=== PATIENT | male | born 1950 ===

== ENCOUNTER → 2020-01-01 13:49 | Outpatient (BNVA) | payer MEDICARE, SELFPAY | PROVIDERS: PCP Internal Medicine; Visit Provider Urology | DX: Z76.89 Persons encountering health services in other specified circumstances (principal) ==

== ENCOUNTER 2020-01-01 14:36 | Inpatient (IN) | payer MEDICARE, SELFPAY ==
--- NOTE | 2020-01-01 | CT_ITS ---
EXAMINATION: CT ABDOMEN AND PELVIS WITH CONTRAST CLINICAL INFORMATION: Left buttock abscess with concern for spread into the peritoneum. COMPARISON: None TECHNIQUE: Multidetector volumetric images were obtained from the superior aspect of the liver through the pubic symphysis following administration 85 mL of Omnipaque 350 intravenous contrast. Sagittal and coronal reformatted images were obtained on the technologist's workstation. Oral Contrast: No. This CT examination was performed using dose optimization techniques as appropriate, variously including the following: *Automated exposure control. *Adjustment of mA and/or kV according to patient size (this includes techniques or standardized protocols for targeted exams where dose is matched to indication/reason for exam; i.e. extremities or head). *Use of iterative reconstruction technique. DLP: 925 mGy-cm FINDINGS: LUNG BASES: The visualized lung bases are unremarkable. LIVER, GALLBLADDER, AND BILIARY TREE: The liver is normal in size, shape, and attenuation. A tiny millimeter-sized density is noted in the mid right lobe (series 3 image 15). No worrisome focal hepatic lesion or biliary ductal dilatation is present. The gallbladder is unremarkable with no evidence of radiopaque gallstones, gallbladder wall thickening, or obvious pericholecystic inflammatory changes. PANCREAS: Unremarkable. SPLEEN: Unremarkable. ADRENAL GLANDS: Unremarkable. KIDNEYS AND URETERS: Bilateral hydronephrosis is present with dilatation of the ureters down to the level of the ureterovesical junctions. No obstructing calculi are seen. Intrarenal calculi are present on the left with a posterior midpole stone measuring 1.1 cm and a lower pole stone measuring 0.8 cm. The lower pole stone measures 1089 Hounsfield units and is 6.8 cm from the posterior axillary line. In addition to the hydronephrosis, bilateral renal cysts are present ranging in size from under a centimeter to the largest at the left upper pole measuring 5.2 cm. No definite solid renal masses are seen. BLADDER: The bladder is symmetrically thickened and trabeculated. No bladder calculi are seen. GASTROINTESTINAL TRACT: Extensive sigmoid diverticular changes are present without evidence of diverticulitis. The small and large bowel are otherwise unremarkable. The appendix is not seen with certainty. ABDOMINAL WALL: There is a left-sided perirectal small collection present measuring 3.2 x 1.0 x 2.5 cm. This is associated with skin thickening. There is no extension of this into the peritoneal cavity. The anterior aspect of this is at the base of the shafts of the penis, just in front of the anus. No other abscesses are seen. There is a small right inguinal hernia containing only fat. No other hernias are seen. LYMPH NODES: No retroperitoneal lymphadenopathy is seen. VASCULAR: Mild calcific atherosclerotic changes are present. PELVIC VISCERA: Prostate and seminal vesicles appear normal. OSSEOUS STRUCTURES: Unremarkable. Mild degenerative changes are present. IMPRESSION: 1. There is a tiny left-sided perianal/rectal abscess. No fistulous collection or extension into the peritoneal cavity is seen. 2. Tiny millimeter-sized hepatic mass which should be of no concern. 3. Bilateral ureterohydronephrosis down to the level of the ureterovesical junctions. The etiology is not clear. Strictures could be present. Reflux could be present. Work up with urology should be performed if this has not already occurred. 4. Left-sided non-obstructing renal calculi. 5. Colonic diverticulosis without diverticulitis.
[2020-01-01 15:21] VITALS: BP 144/53; PULSE 89; RESP 18; TEMP 37.4; O2SAT 97; BMI 28.0
[2020-01-01 17:57] VITALS: BP 149/65; PULSE 70; RESP 16; TEMP 37.3; O2SAT 100
[2020-01-01] MEDS: 0.9 % Sodium Chloride 1,000 ML 999 ML IVCONT (18:08)
[2020-01-01 18:10] LABS: MANUAL DIFF FLAG NO
[2020-01-01 18:14] LABS: Basophils Absolute Auto 0.1 X10*3/uL (0.0-0.2); Basophils Percent Auto 0.5 % (0-2); Eosinophils Absolute Auto 0.1 X10*3/uL (0.0-0.4); Imm Gran Abs Auto 0.07 X10*3/uL (0.00-0.03); Imm Gran Pct Auto 0.5 % (0.0-0.4); Lymphocytes Absolute Auto 1.7 X10*3/uL (1.2-4.9); Lymphocytes Percent Auto 12.4 % (20-40); Mean Corpuscular HGB Conc 33.3 g/dl (31.0-36.0); Mean Corpuscular Hemoglobin 30.4 pg (27.0-33.0); Mean Corpuscular Volume 91.1 fL (80-98); Monocytes Absolute Auto 1.3 X10*3/uL (0.1-1.2); Monocytes Percent Auto 9.8 % (2-11); Neutrophils Absolute Auto 10.1 X10*3/uL (2.0-8.3); Neutrophils Percent Auto 75.8 % (45-73); Platelet Count 341 X10*3/uL (160-400); Red Blood Count 4.28 X10*6/uL (4.60-5.80); Red Cell Distribution Width 11.9 % (11.0-16.0); White Blood Count 13.3 X10*3/uL (4.8-10.8)
[2020-01-01 18:18] LABS: INTERNATIONAL NORM RATIO 1.3 (0.9-1.1); Prothrombin Time 15.3 SEC (10.8-13.0)
[2020-01-01 18:21] LABS: Partial Thromboplastin Time 29.9 SEC (24.1-38.0)
--- NOTE | 2020-01-01 18:30 | ED_ITS ---
HPI - Skin/Abscess/Foreign Bdy General Chief complaint: Skin/Abscess/Foreign Body Stated complaint: cyst Time Seen by Provider: 01/01/20 21:06 History of Present Illness HPI narrative: patient was referred to the ED by Dr. montgomery his urologist for possible prostatitis. Patient states left cheek pain and swelling that has been worse for the past 3 days. Patient states also pain on urination. Patient states no abdominal pain, fever, chills, diarrhea, nausea, or vomiting. MD complaint: abscess/boil Related Data Home Medications Medication Instructions Recorded Confirmed metformin 500 mg tablet 1,000 mg PO DAILY 01/01/20 01/01/20 rosuvastatin 10 mg tablet 10 mg PO DAILY 01/01/20 01/01/20 Previous Rx's Medication Instructions Recorded sulfamethoxazole 800 1 tab PO BID 14 Days #28 tab 12/31/19 mg-trimethoprim 160 mg tablet Allergies Allergy/AdvReac Type Severity Reaction Status Date / Time No Known Allergies Allergy Verified 01/01/20 14:07 [No Known Allergies*] Review of Systems Review of Systems: Yes all other systems are reviewed and are negative Constitutional: Constitutional: Reports as per HPI and Reports no additional constitutional complaints Cardiovascular: Cardiovascular: Reports no additional cardiovascular complaints Respiratory: Respiratory: Reports no additional respiratory complaints, Reports no additional respiratory complaints, Denies change in phlegm color, D enies chest congestion, Denies cough, Denies excessive phlegm production and Denies pain on inspiration Gastrointestinal: Gastrointestinal: Reports no additional gastrointestinal complaints, Denies abdominal pain, Denies melena, Denies bloating, Denies hematochezia, Denies change in bowel habits, Denies tenesmus, Denies change in stool character and Denies coffee ground emesis Genitourinary: Genitourinary: Denies scrotal swelling and Denies testicular pain Comments: positive for left buttock large mass that is swollen and tender, with erythema. Also perineal area is tender and slightly swollen. Digital rectal exam does not indicate tender prostate. [facility] Past Medical History Medical History (Updated 01/02/20 @ 00:52 by BRYNN Medrano) Amputated finger Diabetes High cholesterol Surgical History (Updated 01/01/20 @ 15:24 by Benita Dickerson) History of appendectomy S/P TURP (transurethral resection of prostate) Social History Social History Smoked in Last 30 Days: No Use of substances other than those prescribed or required for medical reasons: No Advance Directives: No Advance Directives Information Provided: No Physical Exam Vital Signs and I&O and Narrative: Vital Signs and I&O: Vital Signs Temp 98.3 F 01/02/20 00:42 Pulse 62 01/02/20 00:42 Resp 20 01/02/20 00:42 BP 153/70 H 01/02/20 00:42 Pulse Ox 97 01/02/20 00:42 Intake & Output 01/01/20 01/01/20 01/02/20 06:59 18:59 06:59 Intake Total 1000 / 1050 Balance 1000 / 1050 Weight 98.883 kg Intake: Intake, IV Amoun t 1000 / 1050 0.9 % Sodium C hloride 1,000 ml 1000 / 1000 @ 999 mls/hr I VCONT .Q1H1M ONE Rx#:[id number] Body Mass Index 28.0 Const: General: cooperative, healthy appearing, comfortable and no acute distress Orientation/consciousness: patient oriented x3 HENMT: Head: Yes normal to inspection Neck: Neck: Yes normal visual inspection and Yes full ROM Chest: Chest palpation & inspection: normal inspection of the chest, normal palpation of entire chest wall and normal inspection of the chest Resp: Effort & Inspection: normal respiratory effort, able to speak in complete sentences and normal respiratory pattern Auscultation: clear to auscultation bilaterally Cardio: Jugular venous distension: no JVD Rate: regular rate Rhythm: regular rhythm Heart sounds: S1 normal heart sound present and S2 normal heart sound present GI: Inspection: Yes normal to inspection, No abdominal wall ecchymosis, No Abdominal wall edema, No distended and No incision Palpation (GI): nontender : Other: for large swelling mass on left gluteus arnaldo. Mass is erythematous and tender. Mass also hard. Perineal area between anus and scrotum is tender on palpation. MEREDITH exam does not indicate much prostate tenderness. General: No CVA tenderness and Yes no CVA tenderness Back/Spine/Pelvis: Back: no CVA tenderness, No CVA tenderness, No mass, No erythema, No warmth, No sacral edema and No back tenderness Skin: General skin exam: no rashes or lesions noted Neuro: General: patient oriented x3, gait normal and CN's II-XI intact bilaterally Cranial nerves: Yes CN's II-XII intact bilaterally Extrem: General: Yes normal to inspection and Yes full ROM Psych: Appearance: grossly normal and well kempt Course Course Course Narrative: Patient has left buttock abscess. Will send patient for CT scan to see if the abscesses tracking, possible perirectal abscess, and check for prostatitis. Reevaluation(s) Reevaluation #1: CT scan shows left perirectal/ perianal abscess. Patient evaluated Dr. Mckeon states patient should be admitted to surgery and states I&D should be done by surgery if indicated. Spoke with Dr. Zapien who agrees to admit patient to her service. Patient given IV antibiotics Zosyn. Time: 00:36 MDM - Skin/Abscess/Foreign Bdy MDM Narrative Medical decision making narrative: patient admitted to the hospital for perirectal/perianal abscess. Patient given IV antibiotics. Lab Data Result diagrams: 01/01/20 18:05 01/01/20 18:05 Labs: Lab Results 01/01/20 01/01/20 01/01/20 Range/Units 18:05 18:05 18:05 WBC 13.3 H (4.8-10.8) X10*3/uL RBC 4.28 L (4.60-5.80) X10*6/uL Hgb 13.0 L (14.0-18.0) g/dl Hct 39.0 L (42-52) % MCV 91.1 (80-98) fL MCH 30.4 (27.0-33.0) pg MCHC 33.3 (31.0-36.0) g/dl RDW 11.9 (11.0-16.0) % Plt Count 341 (160-400) X10*3/uL MPV 9.0 L (9.4-12.4) fL Immature Gran % (Auto) 0.5 H (0.0-0.4) % Neut % (Auto) 75.8 H (45-73) % Lymph % (Auto) 12.4 L (20-40) % [place] % (Auto) 9.8 (2-11) % Eos % (Auto) 1.0 (0-4) % Baso % (Auto) 0.5 (0-2) % Neut # (Auto) 10.1 H (2.0-8.3) X10*3/uL Lymph # (Auto) 1.7 (1.2-4.9) X10*3/uL [place] # (Auto) 1.3 H (0.1-1.2) X10*3/uL Eos # (Auto) 0.1 (0.0-0.4) X10*3/uL Baso # (Auto) 0.1 (0.0-0.2) X10*3/uL Abs Immat Gran (auto) 0.07 H (0.00-0.03) X10*3/uL Absolute Nucleated RBC 0.000 (0.0-0.012) X10*3/uL Nucleated RBC % (auto) 0.0 (0.0-0.2) /100WBC PT 15.3 H (10.8-13.0) SEC INR 1.3 H (0.9-1.1) APTT 29.9 (24.1-38.0) SEC Sodium 141 (135-145) mmol/L Potassium 3.7 (3.3-5.1) mmol/l Chloride 104 (96-108) mmol/L Carbon Dioxide 30 H (22-29) mmol/L Anion Gap 11 L (12-20) BUN 12 (9-16) mg/dL Creatinine 1.15 (0.5-1.4) mg/dL Estim Creat Clear Calc 74.0 Estimated GFR > 60 Random Glucose 119 H (60-115) mg/dL Lactic Acid (0.5-2.0) mmol/L Calcium 9.2 (8.4-10.2) mg/dL Total Bilirubin 0.4 (0.0-1.0) mg/dL AST 12 (5-37) U/L ALT 19 (0-40) U/L Alkaline Phosphatase 92 (39-117) U/L Total Protein 7.1 (6.5-8.0) g/dL Albumin 3.9 (3.5-5.0) g/dL 01/01/20 Range/Units 21:50 WBC (4.8-10.8) X10*3/uL RBC (4.60-5.80) X10*6/uL Hgb (14.0-18.0) g/dl Hct (42-52) % MCV (80-98) fL MCH (27.0-33.0) pg MCHC (31.0-36.0) g/dl RDW (11.0-16.0) % Plt Count (160-400) X10*3/uL MPV (9.4-12.4) fL Immature Gran % (Auto) (0.0-0.4) % Neut % (Auto) (45-73) % Lymph % (Auto) (20-40) % [place] % (Auto) (2-11) % Eos % (Auto) (0-4) % Baso % (Auto) (0-2) % Neut # (Auto) (2.0-8.3) X10*3/uL Lymph # (Auto) (1.2-4.9) X10*3/uL [place] # (Auto) (0.1-1.2) X10*3/uL Eos # (Auto) (0.0-0.4) X10*3/uL Baso # (Auto) (0.0-0.2) X10*3/uL Abs Immat Gran (auto) (0.00-0.03) X10*3/uL Absolute Nucleated RBC (0.0-0.012) X10*3/uL Nucleated RBC % (auto) (0.0-0.2) /100WBC PT (10.8-13.0) SEC INR (0.9-1.1) APTT (24.1-38.0) SEC Sodium (135-145) mmol/L Potassium (3.3-5.1) mmol/l Chloride (96-108) mmol/L Carbon Dioxide (22-29) mmol/L Anion Gap (12-20) BUN (9-16) mg/dL Creatinine (0.5-1.4) mg/dL Estim Creat Clear Calc Estimated GFR Random Glucose (60-115) mg/dL Lactic Acid 0.8 (0.5-2.0) mmol/L Calcium (8.4-10.2) mg/dL Total Bilirubin (0.0-1.0) mg/dL AST (5-37) U/L ALT (0-40) U/L Alkaline Phosphatase (39-117) U/L Total Protein (6.5-8.0) g/dL Albumin (3.5-5.0) g/dL Discharge Plan Discharge Clinical Impression: Abscess, perirectal Patient Disposition: Admitted As Inpatient Interventions: Admission Worksheet (ED) Last Done: 01/01/20 23:32 Discharge Date/Time: 01/02/20 00:56
[2020-01-01 18:37] LABS: Alanine Aminotransferase 19 U/L (0-40); Albumin Level 3.9 g/dL (3.5-5.0); Alkaline Phosphatase 92 U/L (39-117); Anion Gap 11 (12-20); Aspartate Amino Transferase 12 U/L (5-37); Bilirubin Total 0.4 mg/dL (0.0-1.0); Blood Urea Nitrogen 12 mg/dL (9-16); Calcium 9.2 mg/dL (8.4-10.2); Carbon Dioxide 30 mmol/L (22-29); Chloride 104 mmol/L (96-108); Estimated Glomerular Filt Rate > 60; Glucose Random 119 mg/dL (60-115); Potassium 3.7 mmol/l (3.3-5.1); Sodium 141 mmol/L (135-145); Total Protein 7.1 g/dL (6.5-8.0)
--- NOTE | 2020-01-01 19:17 | PC.NURSE ---
PATIENT AT CAT SCAN.
[2020-01-01] MEDS: iohexoL 350 MG/ML 100 ML INFUS..BTL IV (19:36)
[2020-01-01] MEDS: Ketorolac Tromethamine 30 MG/ML VIAL IVPUSH (20:24)
--- NOTE | 2020-01-01 20:26 | PC.NURSE ---
PATIENT MEDICATED PER EMAR FOR PAIN
--- NOTE | 2020-01-01 21:22 | PC.NURSE ---
PLAN IS FOR TO ADMIT THE PATIENT TO THE HOSPITAL
[2020-01-01 22:14] LABS: Lactic Acid 0.8 mmol/L (0.5-2.0)
[2020-01-01] MEDS: Piperacillin Sodium/Tazobactam 3.375 GM in 0.9 % Sodium Chloride 50 ML IV (22:33)
[2020-01-01 22:36] VITALS: BP 149/68; PULSE 67; RESP 15; O2SAT 98
--- NOTE | 2020-01-01 23:33 | PC.NURSE ---
CALLED FLOOR AND PER POTATO SPOTTER RN WAS JUST GETTING REPORT FROM RN ON THE FLOOR AND SHE WILL CALL LUDA
[2020-01-02] VITALS (13 sets, daily range): BP systolic 125–163; BP diastolic 54–82; PULSE 56–76; RESP 14–20; TEMP 36.1–37; O2SAT 64–100
--- NOTE | 2020-01-02 00:08 | PC.NURSE ---
REPORT GIVEN AND PATIENT READY FOR TRANSPORT TO THE FLOOR
[2020-01-02] MEDS: Lactated Ringers 1,000 ML 100 ML IVCONT ×2 (01:26→12:11)
[2020-01-02] MEDS: Piperacillin Sodium/Tazobactam 3.375 GM in 0.9 % Sodium Chloride 50 ML IV ×4 (04:27→21:22)
[2020-01-02 07:34] LABS: Anion Gap 11 (12-20); Blood Urea Nitrogen 12 mg/dL (9-16); Calcium 8.7 mg/dL (8.4-10.2); Carbon Dioxide 28 mmol/L (22-29); Chloride 105 mmol/L (96-108); Creatinine Clr Calc Pharmacy 87.8; Estimated Glomerular Filt Rate > 60; Glucose Fasting 133 mg/dL (60-99); Potassium 3.8 mmol/l (3.3-5.1); Sodium 140 mmol/L (135-145)
[2020-01-02 08:16] LABS: Basophils Absolute Auto 0.1 X10*3/uL (0.0-0.2); Basophils Percent Auto 0.6 % (0-2); Eosinophils Absolute Auto 0.2 X10*3/uL (0.0-0.4); Eosinophils Percent Auto 1.7 % (0-4); Hematocrit 36.9 % (42-52); Hemoglobin 12.2 g/dl (14.0-18.0); Imm Gran Abs Auto 0.04 X10*3/uL (0.00-0.03); Imm Gran Pct Auto 0.4 % (0.0-0.4); Lymphocytes Absolute Auto 1.9 X10*3/uL (1.2-4.9); Lymphocytes Percent Auto 19.5 % (20-40); MANUAL DIFF FLAG SCAN; Mean Corpuscular HGB Conc 33.1 g/dl (31.0-36.0); Mean Corpuscular Hemoglobin 30.3 pg (27.0-33.0); Mean Corpuscular Volume 91.6 fL (80-98); Mean Platelet Volume 9.4 fL (9.4-12.4); Monocytes Percent Auto 10.2 % (2-11); Neutrophils Absolute Auto 6.7 X10*3/uL (2.0-8.3); Neutrophils Percent Auto 67.6 % (45-73); PLT CLUMP 1; Red Blood Count 4.03 X10*6/uL (4.60-5.80); Red Cell Distribution Width 11.9 % (11.0-16.0); SCAN SMEAR FLAG 1
[2020-01-02 08:22] LABS: Glucose, Whole Blood 136 mg/dL (60-115)
[2020-01-02 08:39] LABS: Platelet Count 307 X10*3/uL (160-400)
[2020-01-02 08:40] LABS: SLIDE REVIEW VERIFIED
--- NOTE | 2020-01-02 08:45 | MHC.CM.PN ---
Patient lives in a house with his and 15 year old Granddaughter and he is functionally independent, driving, and working multimedia producer. Patient's goal for dc is to return home and CM has initiated and will follow for dc planning. IMM addressed with Patient and the original has been given to him and a copy has been placed on the chart.
--- NOTE | 2020-01-02 09:28 | P.HPGS_ITS ---
History of Present Illness History of Present Illness Chief complaint: cyst Narrative: Armaan Daniel is a 69 year old male Who gives a 2 week history of increasing pain and swelling just anterior to his rectum. He has been experiencing pain when he tries to sit and also worsening dysuria. He does not report any hematuria. He has felt mildly feverish at night but has not taken his temperature. He saw his urologist, Dr. Choudhary, yesterday and was advised to go to the emergency room for further evaluation and CT scanning. A CT scan of the abdomen and pelvis was obtained in the emergency room and demonstrated findings consistent with a perirectal abscess located day anteriorly extending toward the base of the penis Review of Systems Constitutional: Constitutional: Reports no additional constitutional complaints Eyes: Eyes: Reports requires corrective lenses Cardiovascular: Cardiovascular: Denies chest pain, Denies irregular heart rhythm, Denies palpitations and Denies dyspnea on exertion Respiratory: Respiratory: Denies cough, Denies dyspnea on exertion and Denies wheezing Gastrointestinal: Gastrointestinal: Denies abdominal pain, Denies hematochezia, Denies change in bowel habits and Denies nausea Genitourinary: Genitourinary: Reports dysuria, Denies nocturia and Denies urinary frequency Musculoskeletal: Musculoskeletal: Reports no additional musculoskeletal complaints Integumentary/Breasts: Skin/Breast: Denies pruritus and Denies rash Endocrine: Endocrine: Denies palpitations Hematologic/Lymphatic: Hematologic/Lymphatic: Denies easy bleeding and Reports other (history of blood clots) Allergic/Immunologic: Allergic/Immunologic: Denies wheezing PMFSH Past Medical History Medical History (Updated 01/02/20 @ 00:52 by BRYNN Medrano) Amputated finger Diabetes High cholesterol Functional capacity: independent ambulation Family History Family history: reviewed and not pertinent Surgical History Surgical History History of appendectomy S/P TURP (transurethral resection of prostate) Social History Social History Household Members: Spouse Housing: House Do you presently have visiting nurse or other home services: No Smoking Status: Never smoker Smoked in Last 30 Days: No Use of substances other than those prescribed or required for medical reasons: No Currently Displaying Signs/Symptoms of Drug Intoxication Withdrawal: No Have you been hit, kicked, punched, or otherwise hurt by someone within the past year? If so, by whom?: No Do you feel safe in your current relationship?: Yes Is there a partner from a previous relationship who is making you feel unsafe now?: No Are you made to feel afraid or neglected: No [employer]ond[employer] Healthcare Practices: [facility] Advance Directives: No Advance Directives Information Provided: No Do you have thoughts of harming others: None Do you have a plan to hurt others: No Plan Recently lost weight without trying: No service: Yes Current occupational status: employed Meds Allergies Allergy/AdvReac Type Severity Reaction Status Date / Time No Known Allergies Allergy Verified 01/01/20 14:07 [No Known Allergies*] Home Medications Medication Instructions Recorded Confirmed Type metformin 500 mg tablet 1,000 mg PO DAILY 01/01/20 01/01/20 History rosuvastatin 10 mg tablet 10 mg PO DAILY 01/01/20 01/01/20 History Physical Exam Vital Signs and I&O and Narrative: Vital Signs and I&O: Vital Signs Temp 97.4 F 01/02/20 08:00 Pulse 56 01/02/20 08:00 Resp 20 01/02/20 08:00 BP 159/77 H 01/02/20 08:00 Pulse Ox 96 01/02/20 08:00 Intake & Output 01/01/20 01/02/20 01/02/20 18:59 06:59 18:59 Intake Total 1384.333 / 1384.33 3 Output Total 200 / 200 Balance 1184.333 / 1184.33 3 Urine Output (Aver age ml/kg/hr) 0.17 Weight 218 lb Intake: Intake, Oral Nataly unt 0 / 0 Intake, IV Amoun t 1384.333 / 1384.33 3 Piperacillin S odium/Tazobactam 76 / 76 3.375 gm In 0. 9 % Sodium Chloride 50 ml @ 100 mls/hr IV Q6H CECILIA Rx#:[id number] 0.9 % Sodium C hloride 1,000 ml 1000 / 1000 @ 999 mls/hr I VCONT .Q1H1M ONE Rx#:[id number] Lactated Ringe rs 1,000 ml @ 100 308.333 / 308.333 mls/hr IVCONT .Q10H CECILIA Rx#: [id number] Output: Output, Urine Am ount 200 / 200 Body Mass Index 28.0 Const: General: comfortable, no acute distress and alert Neck: Neck: Yes normal visual inspection, Yes trachea midline and Yes supple Lymphatic: no lymphadenopathy noted Chest: Chest palpation & inspection: normal inspection of the chest Resp: Effort & Inspection: normal respiratory effort Auscultation: clear to auscultation bilaterally Cardio: Rate: regular rate Rhythm: regular rhythm GI: Other: there is erythema and induration anterior to the anal verge extending toward the base of the scrotum and penis with mild tenderness and no obvious fluctuance Inspection: Yes normal to inspection Palpation (GI): Soft to palpation and nontender Skin: Other: normal color, warm and dry Extrem: General: Yes normal to inspection Psych: Attitude: cooperative Insight: Good insight present (Psych) [place] gement: Good judgement present (Psych) Results Results Labs: Short CBC 01/01/20 01/02/20 Range/Units 18:05 05:51 WBC 13.3 H 10.0 (4.8-10.8) X10*3/uL Hgb 13.0 L 12.2 L (14.0-18.0) g/dl Hct 39.0 L 36.9 L (42-52) % Plt Count 341 307 (160-400) X10*3/uL BMP 01/01/20 01/02/20 18:05 05:51 Sodium 141 140 Potassium 3.7 3.8 Chloride 104 105 Carbon Dioxide 30 H 28 BUN 12 12 Creatinine 1.15 0.97 Calcium 9.2 8.7 Liver Function 01/01/20 Range/Units 18:05 Total Bilirubin 0.4 (0.0-1.0) mg/dL AST 12 (5-37) U/L ALT 19 (0-40) U/L Alkaline Phosphatase 92 (39-117) U/L Albumin 3.9 (3.5-5.0) g/dL Assessment and Plan (1) Abscess, perirectal: Status: Acute this is a 69-year-old male with examination and CT findings consistent with a perianal abscess located anteriorly. Incision and drainage is appropriate. Because it does not appear to be superficial, have recommended incision and drainage with general anesthesia. I reviewed the technique of the procedure with him and risks of infection and bleeding. Also, because of his dysuria, there is some concern regarding urethral involvement and the possibility of urethral injury and leakage is present though this risk appears to be relatively low. We discussed this. He agrees to proceed with surgery as recommended and this has been scheduled for later today.
[2020-01-02 11:13] LABS: Glucose, Whole Blood 116 mg/dL (60-115)
--- NOTE | 2020-01-02 13:33 | HO.ANESPROP2 ---
[facility] Past Medical History Medical History (Updated 01/02/20 @ 00:52 by BRYNN Medrano) Amputated finger Diabetes High cholesterol Functional capacity: independent ambulation Surgical History Surgical History History of appendectomy S/P TURP (transurethral resection of prostate) Social History Social History Household Members: Spouse Housing: House Do you presently have visiting nurse or other home services: No Smoking Status: Never smoker Smoked in Last 30 Days: No Use of substances other than those prescribed or required for medical reasons: No Currently Displaying Signs/Symptoms of Drug Intoxication Withdrawal: No Have you been hit, kicked, punched, or otherwise hurt by someone within the past year? If so, by whom?: No Do you feel safe in your current relationship?: Yes Is there a partner from a previous relationship who is making you feel unsafe now?: No Are you made to feel afraid or neglected: No [employer] Healthcare Practices: [employer]ist Advance Directives: No Advance Directives Information Provided: No Do you have thoughts of harming others: None Do you have a plan to hurt others: No Plan Recently lost weight without trying: No service: Yes Current occupational status: employed Meds Allergies Allergy/AdvReac Type Severity Reaction Status Date / Time No Known Allergies Allergy Verified 01/01/20 14:07 [No Known Allergies*] Home Medications Medication Instructions Recorded Confirmed Type metformin 500 mg tablet 1,000 mg PO DAILY 01/01/20 01/01/20 History rosuvastatin 10 mg tablet 10 mg PO DAILY 01/01/20 01/01/20 History Exam Exam Date and Time: January 02, 2020 1333 Height,Weight and Vital Signs: Height 6 ft 2 in Weight 98.883 kg Last Vital Signs Temp 98.3 F 01/02/20 12:48 Pulse 65 01/02/20 12:48 Resp 16 01/02/20 12:48 BP 163/67 H 01/02/20 12:48 Pulse Ox 99 01/02/20 12:48 Pertinent Lab Results Pertinent Lab Results: Laboratory Tests 01/01/20 01/01/20 01/01/20 18:05 18:05 18:05 WBC 13.3 H RBC 4.28 L Hgb 13.0 L Hct 39.0 L MCV 91.1 MCH 30.4 MCHC 33.3 RDW 11.9 Plt Count 341 MPV 9.0 L Immature Gran % (Auto) 0.5 H Neut % (Auto) 75.8 H Lymph % (Auto) 12.[address] [place] % (Auto) 9.8 Eos % (Auto) 1.0 Baso % (Auto) 0.5 Neut # (Auto) 10.1 H Lymph # (Auto) 1.7 [place] # (Auto) 1.3 H Eos # (Auto) 0.1 Baso # (Auto) 0.1 Abs Immat Gran (auto) 0.07 H Absolute Nucleated RBC 0.000 Nucleated RBC % (auto) 0.0 Smear Tech's Comments PT 15.3 H INR 1.3 H APTT 29.9 Sodium 141 Potassium 3.7 Chloride 104 Carbon Dioxide 30 H Anion Gap 11 L BUN 12 Creatinine 1.15 Estim Creat Clear Calc 74.0 Estimated GFR > 60 POC Glucose Random Glucose 119 H Fasting Glucose Lactic Acid Calcium 9.2 Total Bilirubin 0.4 AST 12 ALT 19 Alkaline Phosphatase 92 Total Protein 7.1 Albumin 3.9 01/01/20 01/02/20 01/02/20 21:50 05:51 05:51 WBC 10.0 RBC 4.03 L Hgb 12.2 L Hct 36.9 L MCV 91.6 MCH 30.3 MCHC 33.1 RDW 11.9 Plt Count 307 MPV 9.4 Immature Gran % (Auto) 0.4 Neut % (Auto) 67.6 Lymph % (Auto) 19.[address] [place] % (Auto) 10.2 Eos % (Auto) 1.7 Baso % (Auto) 0.6 Neut # (Auto) 6.7 Lymph # (Auto) 1.9 [place] # (Auto) 1.0 Eos # (Auto) 0.2 Baso # (Auto) 0.1 Abs Immat Gran (auto) 0.04 H Absolute Nucleated RBC 0.000 Nucleated RBC % (auto) 0.0 Smear Tech's Comments VERIFIED PT INR APTT Sodium 140 Potassium 3.8 Chloride 105 Carbon Dioxide 28 Anion Gap 11 L BUN 12 Creatinine 0.97 Estim Creat Clear Calc 87.8 Estimated GFR > 60 POC Glucose Random Glucose Fasting Glucose 133 H Lactic Acid 0.8 Calcium 8.7 Total Bilirubin AST ALT Alkaline Phosphatase Total Protein Albumin 01/02/20 01/02/20 08:13 11:06 WBC RBC Hgb Hct MCV MCH MCHC RDW Plt Count MPV Immature Gran % (Auto) Neut % (Auto) Lymph % (Auto) [place] % (Auto) Eos % (Auto) Baso % (Auto) Neut # (Auto) Lymph # (Auto) [place] # (Auto) Eos # (Auto) Baso # (Auto) Abs Immat Gran (auto) Absolute Nucleated RBC Nucleated RBC % (auto) Smear Tech's Comments PT INR APTT Sodium Potassium Chloride Carbon Dioxide Anion Gap BUN Creatinine Estim Creat Clear Calc Estimated GFR POC Glucose 136 H 116 H Random Glucose Fasting Glucose Lactic Acid Calcium Total Bilirubin AST ALT Alkaline Phosphatase Total Protein Albumin Airway Mallampati Class: II TM Dist: >3cm Neck ROM: Full Loose/Missing/Broken Teeth: Yes Heart: RRR Other: missing teeth Assessment and Plan Assessment Anesthesia Assessment: Anesthesia Plan Discussed Final Anesthetic Review NPO: Yes ASA Class: III Final Preanesthetic Review: Consent Obtained/Reviewed Anesthetic Plan Anesthetic Plan: GA Disposition: Standard PACU
--- NOTE | 2020-01-02 13:33 | MHC.SHP ---
Pre-Procedural Eval Section A The patient is an INPATIENT: Yes Changes since office visit: Yes Patient answered all questions; No Cold of Flu in the past 2 weeks, No New Medical Problems and No Changes in Medication The History & Physical has been completed within 30 days and I have reviewed it.: Yes Section B Chief Complaint: cyst Allergies: Allergies Allergy/AdvReac Type Severity Reaction Status Date / Time No Known Allergies Allergy Verified 01/01/20 14:07 [No Known Allergies*] Plan Diagnosis/Plan: Unchanged Patient has been examined and remains a candidate for the planned procedure
--- NOTE | 2020-01-02 14:39 | W.PM.OPN ---
Operative Note Operative Note Narrative: Preoperative diagnosis: Perianal abscess Postop diagnosis: Perianal and perineal abscess Procedure: Incision and Drainage of Perianal and perianal abscess Anesthesia: GLMA Small Stock Facer: Beatriz Lyons PA-C EBL: 10 cc Indications: Mr. Daniel is a 69-year-old gentleman who has a 2 week history of increasing pain and swelling anterior to the anal area. CT scan of the abdomen and pelvis done last night revealed findings consistent with perianal abscess. Procedure in detail: With patient in low lithotomy position after induction of adequate general anesthesia, the genital, perineal and perianal areas were prepped with Betadine solution and draped sterilely. Time-out procedure was performed. Examination was performed confirming the presence of an area of induration and erythema just to the left of the midline anteriorly about 2.5 cm from the anal verge. Tracking anteriorly from that area, there was induration extending to the posterior base of the scrotum where a smooth area of induration measuring about 2 cm in diameter was present. Skin and subcutaneous tissues overlying both areas were infiltrated with local anesthetic. Both areas were aspirated using a needle and syringe, a 21 gauge needle and the posterior scrotal / perineal area and an 18 gauge needle in the perianal area. A very small amount of purulent-appearing material was present within the barrel of the syringe after aspiration of the posterior scrotal area. No purulence material was encountered on aspiration in the perianal area. Both areas were rare repalpated. An incision was made over the perianal area of induration. A hemostat was employed to spread the yet M subcutaneous soft tissues. When this was done, purulence drainage was encountered. Cultures were taken. A a small cavity was identified extending more posteriorly and centrally toward the anal canal. There appeared to be some anterior extension as well. There was a distance of approximately 3 cm between the perianal incision and the indurated area at the base of the scrotum. A separate incision was made over the indurated area at the base of the scrotum and soft tissues were dissected with a clean hemostats. An empty cavity was entered. Both wounds were irrigated with saline solution and both were packed with saline moistened half-inch plain packing. Dry sterile dressings were applied. He tolerated the procedure well and was transported to the postanesthesia care unit in stable condition. There were no immediate complications.
[2020-01-02] MEDS: oxyCODONE HCl Immed Release 5 MG TABLET PO ×2 (16:38→20:19)
[2020-01-03 00:10] VITALS: BP 112/56; PULSE 59; RESP 16; TEMP 36.8; O2SAT 96
[2020-01-03] MEDS: Lactated Ringers 1,000 ML 100 ML IVCONT ×2 (03:35→13:48)
[2020-01-03] MEDS: Piperacillin Sodium/Tazobactam 3.375 GM in 0.9 % Sodium Chloride 50 ML IV ×2 (03:39→10:33)
[2020-01-03] MEDS: oxyCODONE HCl Immed Release 5 MG TABLET PO (04:40)
[2020-01-03 06:47] LABS: MANUAL DIFF FLAG NO
[2020-01-03 06:53] LABS: Basophils Absolute Auto 0.1 X10*3/uL (0.0-0.2); Basophils Percent Auto 0.6 % (0-2); Eosinophils Absolute Auto 0.2 X10*3/uL (0.0-0.4); Eosinophils Percent Auto 1.6 % (0-4); Hematocrit 35.3 % (42-52); Hemoglobin 11.8 g/dl (14.0-18.0); Imm Gran Abs Auto 0.04 X10*3/uL (0.00-0.03); Imm Gran Pct Auto 0.4 % (0.0-0.4); Lymphocytes Absolute Auto 1.4 X10*3/uL (1.2-4.9); Lymphocytes Percent Auto 13.3 % (20-40); Mean Corpuscular HGB Conc 33.4 g/dl (31.0-36.0); Mean Corpuscular Hemoglobin 30.5 pg (27.0-33.0); Mean Corpuscular Volume 91.2 fL (80-98); Mean Platelet Volume 9.3 fL (9.4-12.4); Monocytes Percent Auto 9.8 % (2-11); Neutrophils Absolute Auto 7.7 X10*3/uL (2.0-8.3); Neutrophils Percent Auto 74.3 % (45-73); Platelet Count 285 X10*3/uL (160-400); Red Blood Count 3.87 X10*6/uL (4.60-5.80); Red Cell Distribution Width 11.8 % (11.0-16.0); White Blood Count 10.4 X10*3/uL (4.8-10.8)
[2020-01-03 07:48] LABS: Anion Gap 8 (12-20); Blood Urea Nitrogen 10 mg/dL (9-16); Calcium 8.2 mg/dL (8.4-10.2); Carbon Dioxide 30 mmol/L (22-29); Chloride 103 mmol/L (96-108); Creatinine Clr Calc Pharmacy 86.9; Estimated Glomerular Filt Rate > 60; Glucose Random 129 mg/dL (60-115); Sodium 137 mmol/L (135-145)
[2020-01-03 08:00] VITALS: BP 159/71; PULSE 57; RESP 18; TEMP 36.6; O2SAT 97
--- NOTE | 2020-01-03 08:50 | HO.POSTANES ---
Post Anesthesia Evaluation Post Anesthesia Evaluation Vital Signs: Vital Signs Temp Pulse Resp BP Pulse Ox 01/03/20 08:00 97.8 F 57 18 159/71 H 97 01/03/20 00:10 98.2 F 59 16 112/56 L 96 Anesthesia: General LMA Mental Status: Awake Pain Control: Satisfactory Nausea/Vomiting: None Hydration: Adequate Anesthesia-Related Issues: No Anes. Related Issues
--- NOTE | 2020-01-03 09:15 | P.PNGS_ITS ---
Subjective Subjective Interval history: He is not having any significant pain this morning, but reports that the dressing has gotten very wet overnight. He has soreness and tenderness associated with the incisions, but no severe pain. Physical Exam Vital Signs and I&O and Narrative: Vital Signs and I&O: Vital Signs Temp 97.8 F 01/03/20 08:00 Pulse 57 01/03/20 08:00 Resp 18 01/03/20 08:00 BP 159/71 H 01/03/20 08:00 Pulse Ox 97 01/03/20 08:00 Intake & Output 01/02/20 01/03/20 01/03/20 18:59 06:59 18:59 Intake Total 1541.667 / 3241.66 7 1700 / 3241.667 240 / 240 Output Total 1000 / 1650 650 / 1650 Balance 541.667 / 7706.617 8961 / 1591.667 240 / 240 Urine Output (Aver age ml/kg/hr) 0.84 0.55 0.55 Intake: Intake, Oral Natal[place] unt 600 / 600 240 / 240 Intake, Other Am ount 750 / 750 Intake, IV Amoun t 791.667 / 1362.464 8986 / 1891.667 Piperacillin S odium/Tazobactam 100 / 200 100 / 200 3.375 gm In 0. 9 % Sodium Chloride 50 ml @ 100 mls/hr IV Q6H CECILIA Rx#:[id number] Lactated Ringe rs 1,000 ml @ 100 691.667 / 2296.683 4919 / 1691.667 mls/hr IVCONT .Q10H CECILIA Rx#: [id number] Output: Output, Urine Am ount 1000 / 1650 650 / 1650 Other: NPO Yes Breakfast % Eate n 100% Number of Unmeas ured Voids 1 Urine Urinal Urinal Urine Color Yellow Tammy Body Mass Index 28.0 Laboratory Results - last 24 hr 01/02/20 01/03/20 01/03/20 11:06 06:09 06:09 WBC 10.4 RBC 3.87 L Hgb 11.8 L Hct 35.3 L MCV 91.2 MCH 30.5 MCHC 33.4 RDW 11.8 Plt Count 285 MPV 9.3 L Immature Gran % (A uto) 0.4 Neut % (Auto) 74.3 H Lymph % (Auto) 13.3 L [place] % (Auto) 9.8 Eos % (Auto) 1.6 Baso % (Auto) 0.6 Lymph # (Auto) 1.4 [place] # (Auto) 1.0 Eos # (Auto) 0.2 Baso # (Auto) 0.1 Abs Immat Gran (au to) 0.04 H Absolute Neuts (au to) 7.7 Absolute Nucleated RBC 0.000 Nucleated RBC % (a uto) 0.0 Sodium 137 Potassium 4.0 Chloride 103 Carbon Dioxide 30 H Anion Gap 8 L BUN 10 Creatinine 0.98 Estim Creat Clear Calc 86.9 Estimated GFR > 60 POC Glucose 116 H Random Glucose 129 H Calcium 8.2 L Const: Other: Alert, appears comfortable : Other: the perineal dressing was saturated, primarily with serous appearing material. No significant purulence noted and just a small amount of bloody staining on gauze. Packing was in place. Minimal erythema. Moderate tenderness around perianal incision and drainage site consistent with recent surgery Progress Note: A&P Assessment and plan (1) Abscess, perirectal: Status: Acute Assessment and Plan: He appears improved with regard to the perianal abscess. I removed the packing. He will begin Sitz baths this morning. There was a moderate amount of primarily serous drainage on his dressing. He had been experiencing urologic symptoms of urethral discharge and dysuria prior to surgery and it is possible that the etiology of the current process is related to a urologic problem. He may require Persaud catheter insertion if he continues to have significant serous drainage. Discussed with his urologist, Dr. Choudhray, who will see him in consultation and will make further plans with regard to the need for placement of a urinary catheter. Fall Risk Details Current Medications: Current Medications Generic Name Dose Route Start Last Admin Trade Name Freq PRN Reason Stop Dose Admin Acetaminophen 650 mg 01/02/20 00:48 Acetaminophen 325 Mg Tablet PO Q6H PRN Fever, mild pain Lactated Ringer's 1,000 mls @ 100 mls/hr 01/02/20 00:48 01/03/20 03:35 Lr IVCONT 100 mls/hr .Q10H CECILIA Administration Piperacillin Sod/Tazobactam 50 mls @ 100 mls/hr 01/02/20 04:00 01/03/20 04:29 Sod 3.375 gm/ Sodium Chloride IV Infused Q6H CECILIA Infusion Ondansetron HCl 4 mg 01/02/20 00:48 Ondansetron Hcl 4 Mg/2 Ml Vial IVPUSH Q8H PRN nausea Oxycodone HCl 5 mg 01/02/20 15:00 01/03/20 04:40 Oxycodone Hcl Immed Release 5 Mg Tablet PO 5 mg Q4H PRN Administration Pain, Moderate (Pain Scale 4-6 Time Spent With Patient Time: Total time spent is greater than 50% in coordination of care (as documented) at patient's floor/unit and/or counseling patient: Time with patient: 15 - 24 minutes
--- NOTE | 2020-01-03 14:20 | MHC.CM.PN ---
DC TODAY. HOME NO SERVICES FAMILY TRANSPORT.
--- NOTE | 2020-01-03 15:52 | PM.PNGS ---
Subjective Subjective Interval history: The patient is a 54-year-old female who presents to the emergency department yesterday today with flu symptoms for the past 5 days. She complains of fevers chills and headaches. Her temperature has been at 102 degrees. The patient has been taking 1. Tylenol 2. NyQuil 3. Motrin. She was referred to the ED today by Bryan Barron. She has a history of chronic kidney disease. Physical Exam Vital Signs and I&O and Narrative: Vital Signs and I&O: Vital Signs Temp 97.8 F 01/03/20 08:00 Pulse 57 01/03/20 08:00 Resp 18 01/03/20 08:00 BP 159/71 H 01/03/20 08:00 Pulse Ox 97 01/03/20 08:00 Intake & Output 01/02/20 01/03/20 01/03/20 18:59 06:59 18:59 Intake Total 1541.667 / 3241.66 7 1700 / 3241.667 1530 / 1530 Output Total 1000 / 1650 650 / 1650 Balance 541.667 / 0483.275 4699 / 5696.992 2981 / 1530 Urine Output (Aver age ml/kg/hr) 0.84 0.55 0.55 Intake: Intake, Oral [place] unt 600 / 600 480 / 480 Intake, Other Am ount 750 / 750 Intake, IV Amoun t 791.667 / 4951.155 7147 / 3554.854 7003 / 1050 Piperacillin S odium/Tazobactam 100 / 200 100 / 200 50 / 50 3.375 gm In 0. 9 % Sodium Chloride 50 ml @ 100 mls/hr IV Q6H CECILIA Rx#:[id number] Lactated Ringe rs 1,000 ml @ 100 691.667 / 5797.571 5116 / 9070.100 3362 / 1000 mls/hr IVCONT .Q10H CECILIA Rx#: [id number] Output: Output, Urine Am ount 1000 / 1650 650 / 1650 Other: NPO Yes Breakfast % Eate n 100% Lunch % Eaten 100% Number of Unmeas ured Voids 1 Urine Urinal Urinal Urine Color Yellow Tammy Body Mass Index 28.0 Progress Note: A&P Time Spent With Patient Time: Total time spent is greater than 50% in coordination of care (as documented) at patient's floor/unit and/or counseling patient:
--- NOTE | 2020-01-03 16:06 | P.DS_ITS ---
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 He also had a history of dysuria and intermittent penile discharge. Examination revealed and indurated, tender area to the left of the midline in the anterior anal area and CT scan was consistent with a perianal abscess. He was admitted and placed on IV antibiotics. Plans were made for incision and drainage. Examination under anesthesia revealed that the area of induration tract anteriorly toward the base of the scrotum where there was a palpable area Consistent with a 2nd collection. Aspiration healed just a small amount of purulent-appearing fluid. Incisions were created over both areas. There is moderate purulence drainage from the perianal area and cultures were taken. At the time of discharge, there was no growth. Dressing change on the 1st postoperative day revealed saturation of the gauze dressings and brendon pads was serous appearing material. Packing was removed. Consultation was requested with his urologist, Dr. Choudhary, as there was concern that the origin of the process might be related to the urinary tract. There was no ongoing drainage , and insertion of a urinary catheter was not felt to be needed. COVID-19 rapid testing was obtained prior to discharge as required for patient's return to work. He had no symptoms consistent with a COVID-19 infection. This was pending at the time of discharge. DS: Summary Time Spent with Patient Time attestation: Total time spent providing and/or coordinating discharge services: Physical Exam Vital Signs and I&O and Narrative: Vital Signs and I&O: Vital Signs Temp 97.8 F 01/03/20 08:00 Pulse 57 01/03/20 08:00 Resp 18 01/03/20 08:00 BP 159/71 H 01/03/20 08:00 Pulse Ox 97 01/03/20 08:00 Intake & Output 01/02/20 01/03/20 01/03/20 18:59 06:59 18:59 Intake Total 1541.667 / 3241.66 7 1700 / 3241.667 1530 / 1530 Output Total 1000 / 1650 650 / 1650 Balance 541.667 / 5834.634 7066 / 4147.206 3159 / 1530 Urine Output (Aver age ml/kg/hr) 0.84 0.55 0.55 Intake: Intake, Oral Nataly unt 600 / 600 480 / 480 Intake, Other Am ount 750 / 750 Intake, IV Amoun t 791.667 / 6965.904 7825 / 8486.633 4255 / 1050 Piperacillin S odium/Tazobactam 100 / 200 100 / 200 50 / 50 3.375 gm In 0. 9 % Sodium Chloride 50 ml @ 100 mls/hr IV Q6H CECILIA Rx#:[id number] Lactated Ringe rs 1,000 ml @ 100 691.667 / 4009.586 8709 / 6272.382 5655 / 1000 mls/hr IVCONT .Q10H CECILIA Rx#: [id number] Output: Output, Urine Am ount 1000 / 1650 650 / 1650 Other: NPO Yes Breakfast % Eate n 100% Lunch % Eaten 100% Number of Unmeas ured Voids 1 Urine Urinal Urinal Urine Color Yellow Tammy Body Mass Index 28.0 Const: Other: Alert, appears comfortable Resp: Other: clear to auscultation bilaterally Cardio: Other: regular rate and rhythm, no audible murmurs GI: Other: nondistended, soft and nontender recent I and D sites anterior anal area 1 o'clock position and base of scrotum posteriorly are clean. There is minimal erythema around the anal incision, decreased induration and tenderness DS: Data Data Completed and Pending Labs on day of discharge: Labs from last 24 hours 01/03/20 01/03/20 01/03/20 Unknown 06:09 06:09 WBC 10.4 RBC 3.87 L Hgb 11.8 L Hct 35.3 L MCV 91.2 MCH 30.5 MCHC 33.4 RDW 11.8 Plt Count 285 MPV 9.3 L Immature Gran % (Auto) 0.4 Neut % (Auto) 74.3 H Lymph % (Auto) 13.3 L [place] % (Auto) 9.8 Eos % (Auto) 1.6 Baso % (Auto) 0.6 Lymph # (Auto) 1.4 [place] # (Auto) 1.0 Eos # (Auto) 0.2 Baso # (Auto) 0.1 Abs Immat Gran (auto) 0.04 H Absolute Neuts (auto) 7.7 Absolute Nucleated RBC 0.000 Nucleated RBC % (auto) 0.0 Sodium 137 Potassium 4.0 Chloride 103 Carbon Dioxide 30 H Anion Gap 8 L BUN 10 Creatinine 0.98 Estim Creat Clear Calc 86.9 Estimated GFR > 60 Random Glucose 129 H Calcium 8.2 L COVID-19 PCR Pending Preliminary micro results at discharge 01/02/20 14:14 Routine Culture - Preliminary Perianal No growth to date. 01/01/20 21:46 Blood Culture - Preliminary Blood - Venous No growth after 24 hours. 01/01/20 21:50 Blood Culture - Preliminary Blood - Venous No growth after 24 hours. will continue usual home medications: metformin 500 mg 2 tabs p.o. daily rosuvastatin 10 mg daily Discharge Plan Discharge Anticipated Discharge Date/Time: 01/03/20 15:04 Patient Disposition: Home, Self-Care Referrals: Dariel Washington MD [Primary Care Provider] - Irina Trevizo MD [Physician] - 01/08/20 (follow up incision and drainage week of 01/07/20) Discharge Medications: New acetaminophen 325 mg Tablet 650 mg PO Q6H PRN (Reason: Fever, mild pain) Qty: 30 RF: 0 Continued sulfamethoxazole-trimethoprim [Bactrim DS] 800-160 mg tablet 1 tab PO BID 14 Days Qty: 28 RF: 0 Discharge Orders: Discharge Order (Routine); Ordered 01/03/20 Ordered By: Irina Trevizo Diet: diabetic diet Activity on Discharge: No heavy lifting Patient Instructions: Incision and Drainage (DC) Discharge Date/Time: 01/03/20 15:23 Activity Restrictions/Additional Instructions: Soak in a Sitz bath or in the tub in warm water 2 to 4 times a day, or more often if desired for comfort. Keep a light gauze dressing over the incisions or wear a pad in year underwear until there is no further drainage. Use acetaminophen 650 mg every 6 hours or 1000 mg every 8 hours as needed for pain. Visit Report Forms: Patient Portal Discharge page Care Plan Goals: Resolution of pain, wound healing, return to usual activity Health Concerns: diabetes mellitus, hypercholesterolemia, perianal abscess Plan of Treatment: antibiotics, wound care, office followup
== END 2020-01-03 15:23 | disposition home or self-care (01) | DRG 346 ==
LOC: HO.ED 20:18 → HO.IMC 23:16
PROVIDERS: Physician Assistant; Admitting Provider Surgery; Emergency Provider Internal Medicine; PCP Internal Medicine; Visit Provider Surgery
PROC: (CPT 46040; principal; 2020-01-02 14:30)
DX: K61.1 Rectal abscess (principal); E78.00 Pure hypercholesterolemia, unspecified; E11.9 Type 2 diabetes mellitus without complications; N49.2 Inflammatory disorders of scrotum; Z20.828 Contact with and (suspected) exposure to other viral communicable diseases
CPT/HCPCS: 36415; 74177; 80048; 80053; 82947; 83605; 85025; 85610; 85730; 87040; 87071; 87205; 87635; 96361; 96365; 96375; 99214; 99284; 99285; J1885; J2250; J2405; J2765; J3010

== ENCOUNTER → 2020-01-08 14:42 | Outpatient (BNVA) | payer MEDICARE, SELFPAY | PROVIDERS: PCP Internal Medicine; Visit Provider Surgery | DX: Z48.815 Encounter for surgical aftercare following surgery on the digestive system (principal) | CPT/HCPCS: 99212 ==

== ENCOUNTER → 2020-01-29 08:50 | Outpatient (BNVA) | payer MEDICARE, SELFPAY | PROVIDERS: PCP Internal Medicine; Visit Provider Surgery | DX: Z48.89 Encounter for other specified surgical aftercare (principal) | CPT/HCPCS: 99212 ==

== ENCOUNTER 2020-04-03 08:27 | Outpatient (REF) | payer MEDICARE, SELFPAY | END 2020-04-03 08:28 | disposition home or self-care (01) | LOC: HO.LNP 08:27 | PROVIDERS: Visit Provider Urology | DX: N40.1 Benign prostatic hyperplasia with lower urinary tract symptoms (principal); N39.0 Urinary tract infection, site not specified; N13.8 Other obstructive and reflux uropathy | CPT/HCPCS: 51798; 81002; 87086; 99212 ==

== ENCOUNTER 2020-09-22 07:40 | Outpatient (REF) | payer MEDICARE, SELFPAY ==
--- NOTE | ~2020-09-22 | US_ITS ---
EXAMINATION: US RETROPERITONEAL LIMITED (RENAL ONLY) CLINICAL INFORMATION: Calculus of kidney. COMPARISON: CT abdomen and pelvis with contrast dated 01/01/2020 and renal ultrasound March 2020. TECHNIQUE: Real-time imaging of the kidneys. FINDINGS: RIGHT KIDNEY: 12.2 x 6.2 x 6.8 cm (SAG x AP x TRV). The kidney is normal in size, contour, and echogenicity. Renal cortical thickness is normal. There are 2 cysts measuring 1 x 0.9 x 0.9 cm in the upper pole and 1.2 x 1.1 x 1.1 cm in the upper pole. There is an echogenic density in the midpole measuring 3 mm questionable for a small stone. No hydronephrosis. LEFT KIDNEY: 13.0 x 6.4 x 6.8 cm (SAG x AP x TRV). The kidney is normal in size. There is left renal cortical thinning. There is moderate left hydronephrosis. This is new from most recent ultrasound March 2020. There are 2 stones measuring 5 x 10 mm in the midpole and 5 x 9 mm in the lower pole. There are 3 left renal cysts, largest measuring 4.7 4.5 x 5.3 cm in the upper pole. Bilateral ureteral jets are demonstrated. US/US renal BI IMPRESSION: Left renal stones and question small right renal stone. Moderate left hydronephrosis new from most recent renal ultrasound March 2020. Bilateral renal cysts.
== END 2020-09-22 07:41 | disposition home or self-care (01) ==
LOC: HO.US 07:40
PROVIDERS: PCP Internal Medicine; Visit Provider Urology
DX: N20.0 Calculus of kidney (principal); N13.8 Other obstructive and reflux uropathy; N40.1 Benign prostatic hyperplasia with lower urinary tract symptoms
CPT/HCPCS: 76775

== ENCOUNTER → 2020-10-02 08:44 | Outpatient (BNVA) | payer MEDICARE, SELFPAY | PROVIDERS: Visit Provider Urology | DX: N40.1 Benign prostatic hyperplasia with lower urinary tract symptoms (principal); N13.8 Other obstructive and reflux uropathy; N20.0 Calculus of kidney | CPT/HCPCS: 99212 ==

== ENCOUNTER 2020-11-24 05:52 | Day surgery (SDC) | payer MEDICARE, SELFPAY ==
[2020-11-18 08:05] VITALS: BMI 26.2
--- NOTE | 2020-11-21 10:16 | P.CONAN_ITS ---
Documented by User: Diana Shin NP 11/21/20 10:17 HPI - Anesthesia Eval Consult details Narrative: 70yo M for Left Cystoscopy, Ureteroroscopy, Retro, Laser PMFSH Active Problems Active Problems: All Active Problems (Updated 11/18/20 @ 08:08 by Marie Mccormack, AARON) Prostatitis (Acute) Abscess, perirectal (Acute) Fistula, urethral (Acute) BPH w urinary obs/LUTS (Acute) Chronic UTI (urinary tract infection) (Acute) Nephrolithiasis (Acute) Past Medical History Medical History Amputated finger COVID-19 vaccine series completed High cholesterol History of benign prostatic hyperplasia HTN (hypertension) Pre-diabetes Surgical History Surgical History H/O colonoscopy History of appendectomy History of incision and drainage S/P TURP (transurethral resection of prostate) Social History Social History Household Members: Spouse Housing: House Are you a primary rn intensive care unit to a significant other at home: No Do you presently have visiting nurse or other home services: No Patient Tobacco Use Status: Never used Tobacco Use of substances other than those prescribed or required for medical reasons: No Have you been hit, kicked, punched, or otherwise hurt by someone within the past year? If so, by whom?: No Are you DNR?: No Advance Directives Information Provided: No (to bring copy of HCP DOS) Advance Directives on File: No Recently lost weight without trying: No Eating poorly because of decreased appetite: No Nutrition Risks: No Nutritional Risk Poor oral hygiene: No service: Yes Current occupational status: employed Meds Allergies Allergy/AdvReac Type Severity Reaction Status Date / Time No Known Allergies Allergy Verified 11/24/20 06:08 [No Known Allergies*] Home Medications Medication Instructions Recorded Confirmed Last Taken Type metformin 500 mg tablet 1,000 mg PO DAILY 01/01/20 11/18/20 01/01/20 History rosuvastatin 10 mg tablet 10 mg PO DAILY 01/01/20 11/18/20 01/01/20 History lisinopril 10 mg tablet 10 mg PO DAILY 10/02/20 11/18/20 Unknown History Exam Exam Date and Time: November 21, 2020 1016 Height,Weight and Vital Signs: Height 6 ft 3 in Weight 95.254 kg Assessment and Plan Assessment Anesthesia Assessment: Chart Reviewed Documented by User: Guillermo Jose MD 11/24/20 07:12 [facility] Past Medical History Medical History Amputated finger COVID-19 vaccine series completed High cholesterol History of benign prostatic hyperplasia HTN (hypertension) Pre-diabetes Surgical History Surgical History H/O colonoscopy History of appendectomy History of incision and drainage S/P TURP (transurethral resection of prostate) Social History Social History Household Members: Spouse Housing: House Are you a primary rn intensive care unit to a significant other at home: No Do you presently have visiting nurse or other home services: No Patient Tobacco Use Status: Never used Tobacco Use of substances other than those prescribed or required for medical reasons: No Have you been hit, kicked, punched, or otherwise hurt by someone within the past year? If so, by whom?: No Are you DNR?: No Advance Directives Information Provided: No (to bring copy of HCP DOS) Advance Directives on File: No Recently lost weight without trying: No Eating poorly because of decreased appetite: No Nutrition Risks: No Nutritional Risk Poor oral hygiene: No service: Yes Current occupational status: employed Meds Allergies Allergy/AdvReac Type Severity Reaction Status Date / Time No Known Allergies Allergy Verified 11/24/20 06:08 [No Known Allergies*] Home Medications Medication Instructions Recorded Confirmed Last Taken Type metformin 500 mg tablet 1,000 mg PO DAILY 01/01/20 11/18/20 01/01/20 History rosuvastatin 10 mg tablet 10 mg PO DAILY 01/01/20 11/18/2020 History lisinopril 10 mg tablet 10 mg PO DAILY 10/02/20 11/18/20 Unknown History Exam Airway Mallampati Class: II TM Dist: >3cm Neck ROM: Full
[2020-11-24] VITALS (8 sets, daily range): BP systolic 136–190; BP diastolic 53–74; PULSE 50–58; RESP 12–18; TEMP 36.1–36.3; O2SAT 96–99
[2020-11-24 06:25] LABS: Glucose, Whole Blood 153 mg/dL (60-115)
--- NOTE | 2020-11-24 07:24 | MHC.SHP ---
Pre-Procedural Eval Section A Date of Service: 11/24/20 Section B Chief Complaint: calculus of kidney Details of Present Illness: left renal stones multiple Relevant Social History: None Present Medications: see Short Stay Collaborative assessment Medical History: Significant History History of Previous Operations: Relevant previous surgery/procedure and date(s) Allergies: Allergies Allergy/AdvReac Type Severity Reaction Status Date / Time No Known Allergies Allergy Verified 11/24/20 06:08 [No Known Allergies*] Review of Systems Sugical H&P ROS: Negative: Constitution, Cardiovascular, Respiratory, Neurological, Psychiatric, Hem-Onc, Allergic/Immunologic, Gastrointestinal, Genitourinary, Musculoskeletal, Integumentary, Endocrine and Eyes/Ears/Nose/Throat Exam Surgical H&P Exam: Normal: HEENT, Normal: Heart, Normal: Lungs, Normal: Extremities, Normal: Abdomen, Normal: Skin and Normal: Neurological Plan Diagnosis/Plan: Unchanged (left renal ureteroscopy, laser, stent placement) I have reviewed the history and physical and performed a pertinent physical examination on my patient. No changes have occurred unless specified.
[2020-11-24] MEDS: levoFLOXacin 500 MG TABLET PO (07:27)
--- NOTE | 2020-11-24 08:53 | P.OP_ITS ---
Operative Note Operative Note Date of Service: 11/24/20 Narrative: PreOperative Diagnosis: Left renal stone Post Operative Diagnosis: Left renal stone 1.5 cm Procedure: - left cystoscopy, retrograde -left dilatation of ureteric orifice under fluoroscopy - left ureteroscopy, laser lithotripsy, stone basketing - left stent placement Surgeon: Dr Carl Choudhary Anesthesia: General Indications for procedure: This is a 70-year-old male. Recurring UTI with previous prostate procedure. Imaging with known renal stones and calyceal dilatation. Stable creatinine. Recommendation for ureteroscopy laser lithotripsy of stone on left side. Procedure: After informed consent was verified patient was brought to the operating placed in supine position. Anesthesia was administered per protocol. Patient was placed in modified dorsal lithotomy position and prepped and draped in a sterile fashion. Safety pause time-out and side of surgery confirmed. Antibiotics confirmed. Twenty-two Bahraini cystoscope inserted per urethra. Bladder had evidence of chronic irritation. It TURP defect. Ureteric orifices normal position. Left ureteric orifice was cannulated and retrograde examination performed. Mild dilatation. No clear filling defect within ureter or renal pelvis. Sensor guidewire was placed. Ureter was dilated under direct fluoroscopic visualization. Ureteric access sheath was placed. Flexible digital ureteral scope was placed. Stone encountered in mid pole approximately 1.2 cm. Using dusting set is of on laser stone was broken into many small pieces. This took approximately 45 minutes. The stone fragments were then removed from the kidney using a Zero tip basket. Sensor guidewire was placed back into the renal pelvis. The ureteric access sheath was removed. The cystoscope was backloaded over the wire. A 6 Bahraini by 28 cm double-J stent was placed without difficulty. He tolerated the procedure well was extubated in operating room transferred in stable condition to the recovery area. Pathology: Renal stones Drains: Ureteric stent
[2020-11-24] MEDS: Phenazopyridine HCL 100 MG TABLET PO (09:10)
[2020-11-27 14:06] LABS: Stone Source LEFT RENAL STONE
== END 2020-11-24 10:40 | disposition home or self-care (01) ==
PROVIDERS: PCP Internal Medicine; Visit Provider Urology
PROC: (CPT 52356; principal; 2020-11-24 07:30)
DX: N20.0 Calculus of kidney (principal); N40.1 Benign prostatic hyperplasia with lower urinary tract symptoms; N13.8 Other obstructive and reflux uropathy; E11.9 Type 2 diabetes mellitus without complications; E78.00 Pure hypercholesterolemia, unspecified; Z79.84 Long term (current) use of oral hypoglycemic drugs; Z79.899 Other long term (current) drug therapy
CPT/HCPCS: 52356; 52352; 82365; 82947; 88300; C1769; C2617; J1100; J2250; J2405; J3010; Q9967

== ENCOUNTER → 2020-12-04 12:43 | Outpatient (BNVA) | payer MEDICARE, SELFPAY | PROVIDERS: PCP Internal Medicine; Visit Provider Urology | DX: N40.1 Benign prostatic hyperplasia with lower urinary tract symptoms (principal); N13.8 Other obstructive and reflux uropathy; N39.0 Urinary tract infection, site not specified; N20.0 Calculus of kidney | CPT/HCPCS: 52000; 52310; 99212 ==

== ENCOUNTER 2021-01-08 15:55 | Outpatient (REF) | payer MEDICARE, SELFPAY ==
--- NOTE | ~2021-01-08 | US_ITS ---
EXAMINATION: US RETROPERITONEAL LIMITED (RENAL ONLY) CLINICAL INFORMATION: Calculus of kidney. COMPARISON: Renal ultrasound 09/22/2020 and 04/15/2020. CT abdomen and pelvis 01/01/2020. TECHNIQUE: Real-time imaging of the kidneys. FINDINGS: RIGHT KIDNEY: 11.3 x 7.0 x 5.6 cm (SAG x AP x TRV). The kidney is normal in size, contour, and echogenicity. Renal cortical thickness is normal. No renal calculi or hydronephrosis. There is an anechoic cyst in the mid pole laterally measuring 1.3 x 1.4 x 1.4 cm. LEFT KIDNEY: 12.9 x 6.7 x 8.5 cm (SAG x AP x TRV). The kidney is normal in size, contour, and echogenicity. Renal cortical thickness is normal. No renal calculi or hydronephrosis. There is an anechoic cyst in the mid pole measuring 5.0 x 5.3 x 4.4 cm and lower pole measuring 0.8 x 0.8 x 0.9 cm. US/US renal BI IMPRESSION: Bilateral anechoic renal cysts. Previously visualized bilateral echogenic calculi are not seen at this time.
== END 2021-01-08 15:56 | disposition home or self-care (01) ==
LOC: HO.US 15:55
PROVIDERS: Visit Provider Urology
DX: N20.0 Calculus of kidney (principal)
CPT/HCPCS: 76775

== ENCOUNTER → 2021-01-22 09:05 | Outpatient (BNVA) | payer MEDICARE, SELFPAY | PROVIDERS: PCP Internal Medicine; Visit Provider Urology | DX: N20.0 Calculus of kidney (principal) | CPT/HCPCS: Q3014 ==

== ENCOUNTER → 2021-04-07 10:25 | Outpatient (BNVA) | payer MEDICARE, SELFPAY | PROVIDERS: PCP Internal Medicine; Visit Provider Urology | DX: N13.30 Unspecified hydronephrosis (principal); N39.0 Urinary tract infection, site not specified; K61.1 Rectal abscess; E11.9 Type 2 diabetes mellitus without complications | CPT/HCPCS: 99212 ==

== ENCOUNTER → 2021-06-10 14:55 | Outpatient (BNVA) | payer MEDICARE, SELFPAY | PROVIDERS: PCP Internal Medicine; Visit Provider Urology | DX: N40.1 Benign prostatic hyperplasia with lower urinary tract symptoms (principal); N13.8 Other obstructive and reflux uropathy; N36.0 Urethral fistula; N20.0 Calculus of kidney | CPT/HCPCS: 52332; 99212 ==

== ENCOUNTER 2021-07-28 16:24 | Outpatient (REF) | payer MEDICARE, SELFPAY ==
--- NOTE | ~2021-07-28 | US_ITS ---
EXAMINATION: US RETROPERITONEAL LIMITED (RENAL ONLY) CLINICAL INFORMATION: Calculus of kidney. COMPARISON: Renal ultrasound 01/08/2021, renal ultrasound 09/22/2020, CT abdomen and pelvis 01/01/2020 TECHNIQUE: Real-time imaging of the kidneys. FINDINGS: RIGHT KIDNEY: 12.0 x 5.5 x 5.3 cm (SAG x AP x TRV). The kidney is normal in size, contour, and echogenicity. Renal cortical thickness is normal. There are 3 cysts, largest measuring 2 x 1.7 x 1.7 cm lateral mid right kidney. No renal calculi or hydronephrosis. LEFT KIDNEY: 12.0 x 5.3 x 7.6 cm (SAG x AP x TRV). The kidney is normal in size, contour, and echogenicity. Renal cortical thickness is normal. There are 3 cysts, largest measuring 5.4 x 4.8 x 5.3 cm medial midpole. There are multiple at least 4 left renal stones, largest measuring 5 x 9 mm in the lower pole. There is mild calyceal dilatation. The renal pelvis does not appear dilated. US/US renal BI IMPRESSION: Bilateral renal stones, left greater than right. Bilateral renal cysts, left greater than right. Mild left calyceal dilatation. The left renal pelvis does not appear dilated.
== END 2021-07-28 16:25 | disposition home or self-care (01) ==
LOC: HO.US 16:24
PROVIDERS: Visit Provider Urology
DX: N20.0 Calculus of kidney (principal)
CPT/HCPCS: 76775

== ENCOUNTER → 2021-07-30 08:45 | Outpatient (BNVA) | payer MEDICARE, SELFPAY | PROVIDERS: PCP Internal Medicine; Visit Provider Urology | DX: K61.1 Rectal abscess (principal) | CPT/HCPCS: 51798; 99212 ==

== ENCOUNTER 2021-09-02 08:41 | Outpatient (AMB) | payer MEDICARE, SELFPAY ==
--- NOTE | 2021-09-02 09:03 | A.OFFVIS_ITS ---
Intake Intake Visit Reasons: 1 Month Levaquin Med Review(NO MRI DONE) Allergies No Known Allergies [No Known Allergies*] Allergy (Verified 05/24/23 08:47) HPI HPI Comments History of Present Illness Details Armaan Daniel is a very pleasant male. He is a patient of Dr Washington. He is see for the following urologic conditions. 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 Prior treatments include 03/15 GLP. Prostate Symptom Score / , Moderate (9-19), Bother 3 09/12 , Mild (0-8), Bother 2. Symptoms include 08/12 , incomplete emptying, weak stream, nocturia (>2), and are progressing 09/12 , incomplete emptying, nocturia (>2), and are improving - nocturia x2 vs 4. Results from testing include renal/bladder us 12/14 CT scan at [facility], bilateral hydroureteronephrosis secondary to prostate enlargement Prior Prostate Score moderate. PSA 09/12 1.8. Prostate volume 30-50gm. Associated conditions CAD No CVA No diabetes No elevated PSA No erectile dysfunction No hematuria No renal insufficiency No urge incontinence No urinary retention No urinary tract infection No psychiatric diagnosis No Testing at next visit will include doing well Nephrolithiasis Further evaluation of recurrent nephrolithiasis Stone composition - calcium oxalate mixed 80% monohydrate Imaging - 09/15 renal ultrasound left hydronephr osis with mild cortical thinning, renal stone - 01/15 renal ultrasound no evidence of stones - 08/16 renal ultrasound bilateral renal cysts, small stones on left Prior intervention - left ureteroscopy 11/15 Medications - vitamin B6 and allopurinol Therapeutic plan - continue medications and interval imag [facility] Medical History Pre-diabetes COVID-19 vaccine series completed HTN (hypertension) History of benign prostatic hyperplasia High cholesterol Amputated finger Surgical History H/O colonoscopy History of incision and drainage History of appendectomy S/P TURP (transurethral resection of prostate) Social History Household Members: Spouse Housing: House Are you a primary health care facility administrator to a significant other at home: No Do you presently have visiting nurse or other home services: No Comment: foely discomfort Patient Tobacco Use Status: Never used Tobacco service: Yes Current occupational status: employed Review of Systems Const Denies chills and Denies fever(s) Card Reports no additional complaints and Denies syncope Resp Denies cough GI Denies abdominal pain and Denies heartburn Reports as per HPI and Denies change in libido Neuro Denies syncope Psych Denies change in libido Endo Denies change in libido Physical Exam Const General: cooperative, healthy appearing, comfortable and no acute distress Orientation/consciousness: patient oriented x3 HEENT Face and sinus: Yes normal facial exam Mouth: moist mucous membranes Neck Neck: Yes normal visual inspection, Yes full ROM and Yes trachea midline Chest Chest palpation & inspection: normal inspection of the chest Resp Effort & Inspection: normal respiratory effort, able to speak in complete sentences and no respiratory distress GI Inspection: Yes normal to inspection Back/Spine/Pelvis Cervical Spine: normal cervical lordosis Thoracic/Lumbar Spine: thoracic and lumbar spine normal to inspection Skin General skin exam: no rashes or lesions noted Neuro General: patient oriented x3, gait normal, tone normal and moves all extremities Extrem General: Yes normal to inspection and Yes capillary refill normal Assessment & Plan Assessment & Plan (1) Scrotal abscess: Code(s): N49.2 - Inflammatory disorders of scrotum Plan antibiotics Patient Instructions: Imaging studies, laboratory and physical exam results were discussed and reviewed in detail. No major barriers to patient understanding were identified. An opportunity to ask questions regarding the treatment plan was provided. All questions were answered. The patient expressed understanding and agreement with the above treatment plan. The patient is aware they should contact our office by phone for worsening of their current condition or the appearance of new urologic symptoms. Compliance is encouraged with any medications and followup testing that is ordered. It is a privilege to participate in the urologic care of your patient. If you have any questions or concerns regarding treatment for the above conditions, or other urologic issues, please do not hesitate to contact me. The office telephone contact is [phone]. This note is constructed using voice recognition software. While every effort has been made to ensure accuracy property damage claims adjustor errors may have been included. Yours sincerely, Dr Carl Choudhary MD, [facility] - Urology Providers of Expert, Compassionate Care for the Genitourinary System Coding Level of Care Code Est Pt Level 3 (38316) Diagnoses Scrotal abscess N49.2
== END 2021-09-02 15:10 | disposition home or self-care (01) ==
LOC: HO.HUSH 08:41
PROVIDERS: PCP Internal Medicine; Visit Provider Urology
DX: N49.2 Inflammatory disorders of scrotum (principal)
CPT/HCPCS: 99499

== ENCOUNTER → 2022-02-03 08:23 | Outpatient (BNVA) | payer MEDICARE, SELFPAY | PROVIDERS: PCP Internal Medicine; Visit Provider Urology | DX: K61.1 Rectal abscess (principal) | CPT/HCPCS: 99212 ==

== ENCOUNTER 2022-02-16 17:48 | Outpatient (REF) | payer MEDICARE, SELFPAY | END 2022-02-16 17:49 | disposition home or self-care (01) | LOC: HO.MRI 17:48 | PROVIDERS: PCP Internal Medicine; Visit Provider Urology | DX: Z13.89 Encounter for screening for other disorder (principal) ==

== ENCOUNTER 2022-09-06 12:42 | Day surgery (SDC) | payer MEDICARE, SELFPAY ==
[2022-09-03 10:10] VITALS: BMI 27.2
--- NOTE | 2022-09-03 11:47 | P.CONAN_ITS ---
HPI - Anesthesia Eval Consult details Narrative: 72yo M for I&D Perineum Abscess PMFSH Active Problems Active Problems: All Active Problems (Updated 06/11/21 @ 16:36 by Carl Choudhary MD) Diabetes (Acute) Prostatitis (Acute) Abscess, perirectal (Acute) Fistula, urethral (Acute) BPH w urinary obs/LUTS (Acute) Chronic UTI (urinary tract infection) (Acute) Nephrolithiasis (Acute) Past Medical History Medical History Amputated finger COVID-19 vaccine series completed High cholesterol History of benign prostatic hyperplasia HTN (hypertension) Pre-diabetes Surgical History Surgical History H/O colonoscopy History of appendectomy History of incision and drainage S/P TURP (transurethral resection of prostate) Social History Social History Household Members: Spouse Housing: House Are you a primary patient care assistant to a significant other at home: No Do you presently have visiting nurse or other home services: No Patient Tobacco Use Status: Never used Tobacco service: Yes Current occupational status: employed Meds Allergies Allergy/AdvReac Type Severity Reaction Status Date / Time No Known Allergies Allergy Verified 09/06/22 13:22 [No Known Allergies*] Home Medications Medication Instructions Recorded Confirmed Last Taken Type metformin 500 mg tablet 1,000 mg PO DAILY 01/01/20 09/03/22 01/01/20 History rosuvastatin 10 mg tablet 10 mg PO DAILY 01/01/20 09/03/22 01/01/20 History Exam Exam Date and Time: September 03, 2022 1147 Height,Weight and Vital Signs: Height 6 ft 3 in Weight 98.883 kg Assessment and Plan Assessment Anesthesia Assessment: Chart Reviewed
[2022-09-06] VITALS (11 sets, daily range): BP systolic 142–165; BP diastolic 58–71; PULSE 55–65; RESP 8–18; TEMP 36.2–37.2; O2SAT 94–97
--- NOTE | ~2022-09-06 | FL_ITS ---
EXAMINATION: XR FLUOROSCOPY WITH IMAGES CLINICAL INFORMATION: Cystoscopy. COMPARISON: None available. TECHNIQUE: Fluoroscopy Supervised By: Dr. Choudhary. Fluoroscopy Time: 20.2 seconds. Cumulative Dose: 5.58 mGy. DAP: Gycm2. Images: 0. FINDINGS: No fluoroscopic image submitted FL/FL guidance in OR IMPRESSION: Intraoperative fluoroscopy guidance provided for Dr. Choudhary. No saved fluoroscopic image.
[2022-09-06] MEDS: Lactated Ringers 1,000 ML 100 ML IVCONT (13:41)
[2022-09-06 13:46] LABS: Glucose, Whole Blood 113 mg/dL (60-115)
--- NOTE | 2022-09-06 16:33 | HO.ANESPROP2 ---
[facility] Active Problems Active Problems: All Active Problems (Updated 06/11/21 @ 16:36 by Carl Choudhary MD) Diabetes (Acute) Prostatitis (Acute) Abscess, perirectal (Acute) Fistula, urethral (Acute) BPH w urinary obs/LUTS (Acute) Chronic UTI (urinary tract infection) (Acute) Nephrolithiasis (Acute) Past Medical History Medical History Amputated finger COVID-19 vaccine series completed High cholesterol History of benign prostatic hyperplasia HTN (hypertension) Pre-diabetes Surgical History Surgical History H/O colonoscopy History of appendectomy History of incision and drainage S/P TURP (transurethral resection of prostate) Social History Social History Household Members: Spouse Housing: House Are you a primary property caretaker to a significant other at home: No Do you presently have visiting nurse or other home services: No Patient Tobacco Use Status: Never used Tobacco Use of substances other than those prescribed or required for medical reasons: No Have you been hit, kicked, punched, or otherwise hurt by someone within the past year? If so, by whom?: No Are you DNR?: No Advance Directives: No Advance Directives Information Provided: Yes Advance Directives on File: No Recently lost weight without trying: No Nutrition Risks: No Nutritional Risk Poor oral hygiene: No service: Yes Current occupational status: employed Meds Allergies Allergy/AdvReac Type Severity Reaction Status Date / Time No Known Allergies Allergy Verified 09/06/22 13:22 [No Known Allergies*] Active Medications: Current Medications Lactated Ringer's (Lr) 1,000 mls @ 100 mls/hr IVCONT .Q10H CECILIA Last Admin: 09/06/22 13:41 Dose: 100 mls/hr Home Medications Medication Instructions Recorded Confirmed Last Taken Type metformin 500 mg tablet 1,000 mg PO DAILY 01/01/20 09/03/22 01/01/20 History rosuvastatin 10 mg tablet 10 mg PO DAILY 01/01/20 09/03/22 01/01/20 History Exam Exam Date and Time: September 06, 2022 1633 Height,Weight and Vital Signs: Height 6 ft 3 in Weight 98.883 kg Last Vital Signs Temp 98.9 F 09/06/22 13:33 Pulse 65 09/06/22 13:33 Resp 16 09/06/22 13:33 BP 142/58 H 09/06/22 13:33 Pulse Ox 97 09/06/22 13:33 O2 Del Method Room Air 09/06/22 13:33 Pertinent Lab Results Pertinent Lab Results: Laboratory Tests 09/06/22 13:33 POC Glucose 113 Airway Mallampati Class: II TM Dist: >3cm Neck ROM: Full Heart: RRR Lungs: CTA Assessment and Plan Final Anesthetic Review ASA Class: II and Emergency Final Preanesthetic Review: Meds/Allgs Chart Reviewed, Consent Obtained/Reviewed and Anes Risks/Benef Reviewed Patient Risk: Intermediate Procedure Risk: Low Anesthetic Plan Anesthetic Plan: GA Disposition: Standard PACU
--- NOTE | 2022-09-06 17:00 | MHC.SHP ---
Pre-Procedural Eval Section A Date of Service: 09/06/22 The patient is an INPATIENT: No Changes since office visit: No Cold of Flu in the past 2 weeks, No New Medical Problems, No Changes in Medication and No Patient answered all questions The History & Physical has been completed within 30 days and I have reviewed it.: Yes Section B Chief Complaint: Cutaneous abscess of perineum Details of Present Illness: question of perirectal versus periprostatic abscess Relevant Social History: None Present Medications: see Short Stay Collaborative assessment Medical History: No relevant PMH History of Previous Operations: Relevant previous surgery/procedure and date(s) Allergies: Allergies Allergy/AdvReac Type Severity Reaction Status Date / Time No Known Allergies Allergy Verified 09/06/22 13:22 [No Known Allergies*] Review of Systems Sugical H&P ROS: Negative: Constitution, Cardiovascular, Respiratory, Neurological, Psychiatric, Hem-Onc, Allergic/Immunologic, Gastrointestinal, Genitourinary, Musculoskeletal, Integumentary, Endocrine and Eyes/Ears/Nose/Throat Exam Surgical H&P Exam: Normal: HEENT, Normal: Heart, Normal: Lungs, Normal: Extremities, Normal: Abdomen, Normal: Skin and Normal: Neurological Plan Diagnosis/Plan: Unchanged I have reviewed the history and physical and performed a pertinent physical examination on my patient. No changes have occurred unless specified. Time Spent With Patient Time: Total time managing care of this patient today ____ minutes.
--- NOTE | 2022-09-06 18:32 | W.PM.OPN ---
Operative Note Operative Note Date of Service: 09/06/22 Narrative: PreOperative Diagnosis: Scrotal abcess Post Operative Diagnosis: 1- bulbar urethral stricture - recurrent 2- scrotal abcess Procedure: 1. Cystoscopy, 2. Dilatation bulbar urethral stricture 3. Scrotal abscess reactive tissue removal Surgeon: Dr Carl Choudhary Anesthesia: general Indications for procedure: 72-year-old male. Persistent scrotal abscess. Prior prostate procedure 2019. At initial procedure noted to have prostate apical narrowing. Recommend scrotal exploration with cystoscopy. Procedure: After informed consent was verified the patient was brought to the operating room and placed in a supine position. Anesthesia was administered per protocol. The patient was prepped and draped in a sterile fashion. Safety pause time-out was performed. Antibiotics being given. he had been placed in modified dorsal lithotomy position. Cystoscopy performed. Bulbar prostate apical stricture counted. Unable to advance 22 Barbadian scope. Sensor guidewire placed. Stricture dilated from 14 Barbadian to 24 Barbadian. Cystoscope advanced into bladder. Bladder emptied. Bladder appeared to have chronic cystitis mucosal changes. In the setting of apical stricture this is consistent. Twenty-four Barbadian 30 cc [place] tip catheter placed over sensor guidewire into bladder. 30 cc placed in balloon. Sensor guidewire removed. Attention directed to scrotum. There was both a midline posterior and left posterior soft tissue thickening. Small opening at posterior of left scrotum. Scissors were inserted and manipulated however minimal fluid was expressed. Local anesthetic placed and midline of scrotum posteriorly. 3-4 inch midline incision made. Sharp dissection performed through inflamed subcutaneous thickened tissue. This was followed anteriorly to water p.o. to be prior scarring and posteriorly. Visible pock martinez on scan indicative of prior draining tract. This area had previous drainage. Dissection performed with Bovie and sharp dissection to remove chronic Wilfredo aided material. Care was taken not to invade deep muscle layers. A preponderance of the inflamed material was removed. There was residual tissue to ensure skin integrity. At this point a decision was made to place a [place] drain exiting the prior left posterior scrotal drainage site. Subcutaneous tissues right freely reapproximated using running 2-0 Vicryl. Skin edges reapproximated with interrupted 3-0 chromic suture. Dressing was applied with mesh pants He tolerated procedure well was extubated in operating room and transferred in stable condition to the recovery area Pathology: caseating material Drains: haylie Breast [place] Node Biopsy Substrate(s) used for sentinel node biopsy in the neoadjuvant setting: Dye, Radiotracer, & Clips General Surg. - Synoptic Notes Breast [place] Node Biopsy Substrate(s) used for sentinel node biopsy in the neoadjuvant setting: Dye, Radiotracer, & Clips
[2022-09-06] MEDS: Acetaminophen 1,000 MG/100 ML PIGGYBACK 400 MG IV (18:45)
[2022-09-06] MEDS: fentaNYL citrate/PF 100 MCG/2 ML VIAL 25 MCG IVPUSH ×3 (18:56→19:08)
[2022-09-06] MEDS: traMADoL HCL 50 MG TABLET PO (18:57)
--- NOTE | 2022-09-06 20:18 | HO.POSTANES ---
Post Anesthesia Evaluation Post Anesthesia Evaluation Date of Service: 09/06/22 Vital Signs: Vital Signs Temp Pulse Resp BP Pulse Ox O2 Del Method 09/06/22 19:25 97.2 F 55 10 L 146/65 H 96 Room Air 09/06/22 19:10 57 8 L 152/61 H 96 Room Air 09/06/22 19:08 16 09/06/22 19:06 16 158/64 H 95 Room Air 09/06/22 19:03 18 09/06/22 19:01 157/64 H 95 Room Air 09/06/22 18:55 58 18 165/69 H 94 Room Air 09/06/22 18:50 58 18 159/71 H 94 Room Air 09/06/22 18:45 59 18 151/62 H 96 Room Air 09/06/22 18:40 97.4 F 61 18 143/58 H 94 Room Air 09/06/22 13:33 98.9 F 65 16 142/58 H 97 Room Air Anesthesia: General LMA Mental Status: Awake Pain Control: Satisfactory Nausea/Vomiting: None Hydration: Adequate Anesthesia-Related Issues: No Anes. Related Issues
== END 2022-09-06 19:40 | disposition home or self-care (01) ==
PROVIDERS: PCP Internal Medicine; Visit Provider Urology
PROC: (CPT 52281; principal; 2022-09-06 15:00)
DX: L02.215 Cutaneous abscess of perineum (principal); N49.2 Inflammatory disorders of scrotum; N35.812 Other bulbous urethral stricture, male; N41.9 Inflammatory disease of prostate, unspecified; N40.0 Benign prostatic hyperplasia without lower urinary tract symptoms; N39.0 Urinary tract infection, site not specified; I10 Essential (primary) hypertension; E78.00 Pure hypercholesterolemia, unspecified; E11.9 Type 2 diabetes mellitus without complications; Z79.84 Long term (current) use of oral hypoglycemic drugs; Z79.899 Other long term (current) drug therapy
CPT/HCPCS: 52281; 54700; 82947; 88304; C1769; J0131; J0690; J2250; J2405; J3010; Q9967

== ENCOUNTER → 2022-09-10 09:57 | Outpatient (BNVA) | payer MEDICARE, SELFPAY | PROVIDERS: PCP Internal Medicine; Visit Provider Urology ==

== ENCOUNTER 2022-09-17 13:37 | Outpatient (AMB) | payer MEDICARE, SELFPAY ==
--- NOTE | 2022-09-17 13:44 | AM.OFFVISNUR ---
Intake Intake Visit Reasons: Cath removal Allergies No Known Allergies [No Known Allergies*] Allergy (Verified 09/06/22 13:22) Nursing Note pt presents to office for post op cath removal- 18 fr cath w 10 mls balloon removed, pt tolerated removal well. Coding Diagnoses
--- NOTE | 2022-09-17 13:50 | A.OFFVIS_ITS ---
Intake Intake Visit Reasons: Cath removal Intake Note: pt presents to office for post op cath removal. 18 fr cath removed, pt tolerated removal well. Allergies No Known Allergies [No Known Allergies*] Allergy (Verified 10/19/22 08:48) HPI HPI Comments History of Present Illness Details Armaan Daneil is a very pleasant male. He is a patient of Dr Washington. He is see for the following urologic conditions. - lower urinary tract symptoms - hydronephrosis - recurring UTI - recurring scrotal perineal abscess Here for catheter removal after scrotal procedure Lower Urinary Tract Symptoms: GreenLight 02/2019 Current visit is for further follow-up BPH Current treatment includes 09/12 , alpha jalyn, good response. Prior treatments include 03/15 GLP. Prostate Symptom Score 08/12 , Moderate (9-19), Bother 3 09/12 , Mild (0-8), Bother 2. Symptoms include 08/12 , incomplete emptying, weak stream, nocturia (>2), and are progressing 09/12 , incomplete emptying, nocturia (>2), and are improving - nocturia x2 vs 4. Results from testing include renal/bladder us 12/14 CT scan at [facility], bilateral hydroureteronephrosis secondary to prostate enlargement Prior Prostate Score moderate. PSA 09/12 1.8. Prostate volume 30-50gm. Testing at next visit will include doing well Nephrolithiasis Further evaluation of recurrent nephrolithiasis Stone composition - calcium oxalate mixed 80% monohydrate Imaging - 09/15 renal ultrasound left hydronephr osis with mild cortical thinning, renal stone - 01/15 renal ultrasound no evidence of stones - 08/16 renal ultrasound bilateral renal cysts, small stones on left Prior intervention - left ureteroscopy 11/15 Medications - vitamin B6 and allopurinol Therapeutic plan - continue medications and interval imag ing [facility] Medical History Amputated finger COVID-19 vaccine series completed High cholesterol History of benign prostatic hyperplasia HTN (hypertension) Pre-diabetes Surgical History H/O colonoscopy History of appendectomy History of incision and drainage S/P TURP (transurethral resection of prostate) Social History Household Members: Spouse Housing: House Are you a primary client care representative to a significant other at home: No Do you presently have visiting nurse or other home services: No Patient Tobacco Use Status: Never used Tobacco service: Yes Current occupational status: employed Review of Systems Const Denies chills and Denies fever(s) Card Reports no additional complaints and Denies syncope Resp Denies cough GI Denies abdominal pain and Denies heartburn Reports as per HPI and Denies change in libido Neuro Denies syncope Psych Denies change in libido Endo Denies change in libido Physical Exam Const General: cooperative, healthy appearing, comfortable and no acute distress Orientation/consciousness: patient oriented x3 HEENT Face and sinus: Yes normal facial exam Mouth: moist mucous membranes Neck Neck: Yes normal visual inspection, Yes full ROM and Yes trachea midline Chest Chest palpation & inspection: normal inspection of the chest Resp Effort & Inspection: normal respiratory effort, able to speak in complete sentences and no respiratory distress GI Inspection: Yes normal to inspection Back/Spine/Pelvis Cervical Spine: normal cervical lordosis Thoracic/Lumbar Spine: thoracic and lumbar spine normal to inspection Skin General skin exam: no rashes or lesions noted Neuro General: patient oriented x3, gait normal, tone normal and moves all extremities Extrem General: Yes normal to inspection and Yes capillary refill normal Assessment & Plan Assessment & Plan (1) Scrotal abscess: Code(s): N49.2 - Inflammatory disorders of scrotum (2) Bulbous urethral stricture: Code(s): N35.912 - Unspecified bulbous urethral stricture, male Plan six week followup after bulbar stricture dilation Patient Instructions: Imaging studies, laboratory and physical exam results were discussed and reviewed in detail. No major barriers to patient understanding were identified. An opportunity to ask questions regarding the treatment plan was provided. All questions were answered. The patient expressed understanding and agreement with the above treatment plan. The patient is aware they should contact our office by phone for worsening of their current condition or the appearance of new urologic symptoms. Compliance is encouraged with any medications and followup testing that is ordered. It is a privilege to participate in the urologic care of your patient. If you have any questions or concerns regarding treatment for the above conditions, or other urologic issues, please do not hesitate to contact me. The office telephone contact is [phone]. This note is constructed using voice recognition software. While every effort has been made to ensure accuracy promos executive producer errors may have been included. Yours sincerely, Dr Carl Choudhary MD, [facility] - Urology Providers of Expert, Compassionate Care for the Genitourinary System Coding Level of Care Code Est Pt Level 3 (78967) Diagnoses Scrotal abscess N49.2 Bulbous urethral stricture N35.912
== END 2022-09-17 14:21 | disposition home or self-care (01) ==
LOC: HO.HUSH 13:37
PROVIDERS: PCP Internal Medicine; Visit Provider Urology
DX: N49.2 Inflammatory disorders of scrotum (principal); N35.912 Unspecified bulbous urethral stricture, male
CPT/HCPCS: 99213

== ENCOUNTER → 2022-09-17 13:37 | Outpatient (BNVA) | payer MEDICARE, SELFPAY | PROVIDERS: PCP Internal Medicine; Visit Provider Urology | DX: N35.912 Unspecified bulbous urethral stricture, male (principal); N49.2 Inflammatory disorders of scrotum; N28.1 Cyst of kidney, acquired | CPT/HCPCS: 99212 ==

== ENCOUNTER 2022-10-19 08:41 | Outpatient (REF) | payer MEDICARE, SELFPAY | END 2022-10-19 08:42 | disposition home or self-care (01) | LOC: HO.LAB 08:41 | PROVIDERS: PCP Internal Medicine; Visit Provider Urology | DX: N39.0 Urinary tract infection, site not specified (principal); N49.2 Inflammatory disorders of scrotum; N40.1 Benign prostatic hyperplasia with lower urinary tract symptoms; N13.8 Other obstructive and reflux uropathy; Z79.2 Long term (current) use of antibiotics; Z87.442 Personal history of urinary calculi | CPT/HCPCS: 51798; 99212 ==

== ENCOUNTER 2022-10-19 08:41 | Outpatient (AMB) | payer MEDICARE, SELFPAY ==
--- NOTE | 2022-10-19 08:46 | A.OFFVIS_ITS ---
Intake Intake Visit Reasons: 6w follow up Intake Note: Patient is present for Follow Up UTI Urology Med: Currently on Antibiotics Antibiotic Allergy: None Blood Thinner: None PVR: 0ml Allergies No Known Allergies [No Known Allergies*] Allergy (Verified 10/19/22 08:48) HPI HPI Comments History of Present Illness Details Armaan Daniel is a very pleasant male. He is a patient of Dr Washington. He is see for the following urologic conditions. - lower urinary tract symptoms - hydronephrosis - recurring UTI - recurring scrotal perineal abscess Area of perineal abscess has finally healed Did have recent UTI starting Tuesday Given Levaquin UA today positive will send for culture Extend Levaquin treatment for 14 days total Lower Urinary Tract Symptoms: GreenLight 02/2019 Current visit is for further follow-up BPH Current treatment includes 09/12 , alpha jalyn, good response. Prior treatments include 03/15 GLP. Prostate Symptom Score / , Moderate (9-19), Bother 3 09/12 , Mild (0-8), Bother 2. Symptoms include 08/12 , incomplete emptying, weak stream, nocturia (>2), and are progressing 09/12 , incomplete emptying, nocturia (>2), and are improving - nocturia x2 vs 4. Results from testing include renal/bladder us 12/14 CT [facility] at [facility], bilateral hydroureteronephrosis secondary to prostate enlargement Prior Prostate Score moderate. PSA 09/12 1.8. Prostate volume 30-50gm. Testing at next visit will include doing well Nephrolithiasis Further evaluation of recurrent nephrolithiasis Stone composition - calcium oxalate mixed 80% monohydrate Imaging - 09/15 renal ultrasound left hydronephrosis with mild cortical thinning, renal stone - 01/15 renal ultrasound no evidence of stones - 08/16 renal ultrasound bilateral renal cysts, small stones on left Prior intervention - left ureteroscopy 11/15 Medications - vitamin B6 and allopurinol Therapeutic plan - continue medications and interval imaging [facility] Medical History Amputated finger COVID-19 vaccine series completed High cholesterol History of benign prostatic hyperplasia HTN (hypertension) Pre-diabetes Surgical History H/O colonoscopy History of appendectomy History of incision and drainage S/P TURP (transurethral resection of prostate) Social History Household Members: Spouse Housing: House Are you a primary day care aide to a significant other at home: No Do you presently have visiting nurse or other home services: No Patient Tobacco Use Status: Never used Tobacco service: Yes Current occupational status: employed Review of Systems Const Denies chills and Denies fever(s) Card Reports no additional complaints and Denies syncope Resp Denies cough GI Denies abdominal pain and Denies heartburn Reports as per HPI and Denies change in libido Neuro Denies syncope Psych Denies change in libido Endo Denies change in libido Physical Exam Const General: cooperative, healthy appearing, comfortable and no acute distress Orientation/consciousness: patient oriented x3 HEENT Face and sinus: Yes normal facial exam Mouth: moist mucous membranes Neck Neck: Yes normal visual inspection, Yes full ROM and Yes trachea midline Chest Chest palpation & inspection: normal inspection of the chest Resp Effort & Inspection: normal respiratory effort, able to speak in complete sentences and no respiratory distress GI Inspection: Yes normal to inspection Back/Spine/Pelvis Cervical Spine: normal cervical lordosis Thoracic/Lumbar Spine: thoracic and lumbar spine normal to inspection Skin General skin exam: no rashes or lesions noted Neuro General: patient oriented x3, gait normal, tone normal and moves all extremities Extrem General: Yes normal to inspection and Yes capillary refill normal Office Procedures Post Void Residual Post Residual Void Post Void Residual (PVR): 0 [id number] Void Residual by ultrasound Results AMB Urinalysis, Automated UA Leukoctes 500 Daniel/uL Last Edit by KODY Hager on 10/19/22 08:55 UA Nitrite Positive Last Edit by KODY Hager on 10/19/22 08:55 UA Urobilinogen 0.2 mg/dL Last Edit by KODY Hager on 10/19/22 08:5 5 UA Protein 100 mg/dL Last Edit by KODY Hager on 10/19/22 08:55 UA pH 6.0 Last Edit by KODY Hager on 10/19/22 08:55 UA Blood 80 Artemio/uL Last Edit by KODY Hager on 10/19/22 08:55 UA Specific [place] 1.020 Last Edit by Chelle Daley, RMA on 10/19/22 08: 55 UA Ketone Positive Last Edit by Chelle Daley, RMA on 10/19/22 08:55 UA Bilirubin 0 mg/dL Last Edit by Chelle Daley, RMA on 10/19/22 08:55 UA Glucose 0 mg/dL Last Edit by Chelle Daley, RMA on 10/19/22 08:55 sent out for culture Results Reviewed Results Reviewed: Laboratory Last Values Urine pH (Auto) 6.0 10/19/22 08:49 Specific [place] (Auto) 1.020 10/19/22 08:49 Urine Protein (Auto) 100 mg/dL 10/19/22 08:49 Glucose (UA)(Auto) 0 mg/dL 10/19/22 08:49 Urine Ketones (Auto) Positive 10/19/22 08:49 Urine Blood (Auto) 80 Artemio/uL 10/19/22 08:49 Urine Nitrite (Auto) Positive 10/19/22 08:49 Urine Bilirubin (Auto) 0 mg/dL 10/19/22 08:49 Urine Urobilinogen (Auto) 0.2 mg/dL 10/19/22 08:49 Leukocyte Esterase (Auto) 500 Daniel/uL 10/19/22 08:49 Assessment & Plan Assessment & Plan (1) Scrotal abscess: Code(s): N49.2 - Inflammatory disorders of scrotum (2) Chronic UTI (urinary tract infection): Code(s): N39.0 - Urinary tract infection, site not specified Plan Continue to maintain follow-up Orders: Orders Urine Culture Today N39.0 - Urinary tract infection, site not specified AMB Urinalysis Automated Today Z13.9 - Encounter for screening, unspecified AMB Post Void Residual by ultrasound Today N13.8 - Other obstructive and reflux uropathy, N40.1 - Benign prostatic hyperplasia with lower urinary tract symptoms Patient Instructions: Imaging studies, laboratory and physical exam results were discussed and reviewed in detail. No major barriers to patient understanding were identified. An opportunity to ask questions regarding the treatment plan was provided. All questions were answered. The patient expressed understanding and agreement with the above treatment plan. The patient is aware they should contact our office by phone for worsening of their current condition or the appearance of new urologic symptoms. Compliance is encouraged with any medications and followup testing that is ordered. It is a privilege to participate in the urologic care of your patient. If you have any questions or concerns regarding treatment for the above conditions, or other urologic issues, please do not hesitate to contact me. The office telephone contact is [phone]. This note is constructed using voice recognition software. While every effort has been made to ensure accuracy personnel worker errors may have been included. Yours sincerely, Dr Carl Choudhary MD, [facility] - Urology Providers of Expert, Compassionate Care for the Genitourinary System Coding Level of Care Code Est Pt Level 4 (19776) Diagnoses Scrotal abscess N49.2 Chronic UTI (urinary tract infection) N39.0 CPT Codes Post Residual Void - PVR CPT Code: 11692-[id number] Void Residual by ultrasound ([id number])
== END 2022-10-19 09:18 | disposition home or self-care (01) ==
PROVIDERS: PCP Internal Medicine; Visit Provider Urology
DX: N49.2 Inflammatory disorders of scrotum (principal); N39.0 Urinary tract infection, site not specified
CPT/HCPCS: 99214

== ENCOUNTER 2023-01-31 10:04 | Day surgery (SDC) | payer MEDICARE, SELFPAY ==
--- NOTE | 2023-01-28 10:45 | HO.ANESPROP2 ---
Documented by User: Diana Shin NP 01/28/23 10:52 HPI - Anesthesia Eval Consult details Narrative: 72yo M for Cystoscopy retrograde urethrogam s/p cysto, I&D with GA-LMA 5 PMFSH Active Problems Active Problems: All Active Problems (Updated 09/06/22 @ 18:30 by Carl Choudhary MD) Bulbous urethral stricture (Acute) Scrotal abscess (Acute) Diabetes (Acute) Prostatitis (Acute) Abscess, perirectal (Acute) Fistula, urethral (Acute) BPH w urinary obs/LUTS (Acute) Chronic UTI (urinary tract infection) (Acute) Nephrolithiasis (Acute) Past Medical History Medical History Amputated finger COVID-19 vaccine series completed High cholesterol History of benign prostatic hyperplasia HTN (hypertension) Pre-diabetes Surgical History Surgical History H/O colonoscopy History of appendectomy History of incision and drainage S/P TURP (transurethral resection of prostate) Social History Social History Household Members: Spouse Housing: House Are you a primary home care and home health aides teacher to a significant other at home: No Do you presently have visiting nurse or other home services: No Patient Tobacco Use Status: Never used Tobacco Use of substances other than those prescribed or required for medical reasons: No Are you DNR?: No Advance Directives: No Advance Directives Information Provided: Yes service: Yes Current occupational status: employed Meds Allergies Allergy/AdvReac Type Severity Reaction Status Date / Time No Known Allergies Allergy Verified 01/31/23 10:59 [No Known Allergies*] Home Medications Medication Instructions Recorded Confirmed Last Taken Type metformin 500 mg tablet 1,000 mg PO DAILY 01/01/20 01/31/23 01/30/23 History rosuvastatin 10 mg tablet 10 mg PO DAILY 01/01/20 01/31/23 01/30/23 History losartan 25 mg tablet 25 mg PO DAILY 01/31/23 01/31/23 01/30/23 History Exam Exam Date and Time: January 28, 2023 1045 Assessment and Plan Assessment Anesthesia Assessment: Chart Reviewed Documented by User: Chuck Lemus MD 01/31/23 15:02 PMFSH Past Medical History Medical History Amputated finger COVID-19 vaccine series completed High cholesterol History of benign prostatic hyperplasia HTN (hypertension) Pre-diabetes Family History Family history of problems with anesthesia: No Surgical History Surgical History H/O colonoscopy History of appendectomy History of incision and drainage S/P TURP (transurethral resection of prostate) History of Problems with Anesthesia: No Social History Social History Household Members: Spouse Housing: House Are you a primary home care and home health aides teacher to a significant other at home: No Do you presently have visiting nurse or other home services: No Patient Tobacco Use Status: Never used Tobacco Use of substances other than those prescribed or required for medical reasons: No Are you DNR?: No Advance Directives: No Advance Directives Information Provided: Yes service: Yes Current occupational status: employed Meds Allergies Allergy/AdvReac Type Severity Reaction Status Date / Time No Known Allergies Allergy Verified 01/31/23 10:59 [No Known Allergies*] Home Medications Medication Instructions Recorded Confirmed Last Taken Type metformin 500 mg tablet 1,000 mg PO DAILY 01/01/20 01/31/23 01/30/23 History rosuvastatin 10 mg tablet 10 mg PO DAILY 01/01/20 01/31/23 01/30/23 History losartan 25 mg tablet 25 mg PO DAILY 01/31/23 01/31/23 01/30/23 History Exam Airway Mallampati Class: I TM Dist: >3cm Neck ROM: Full Heart: ok Lungs: ok Assessment and Plan Assessment Anesthesia Assessment: Anesthesia Plan Discussed Final Anesthetic Review Family History of Problems with Anesthesia: No History of Problems with Anesthesia: No NPO: Yes ASA Class: III Final Preanesthetic Review: No Changes in Pt Med Stat, Meds/Allgs Chart Reviewed, Consent Obtained/Reviewed and Anes Risks/Benef Reviewed Patient Risk: Intermediate Procedure Risk: Low Anesthetic Plan Anesthetic Plan: GA and Agree w/ Assess. and Plan Disposition: Standard PACU
[2023-01-31] VITALS (8 sets, daily range): BP systolic 108–144; BP diastolic 46–62; PULSE 68–104; RESP 16; TEMP 36.7–38.4; O2SAT 96–98; BMI 26.0
--- NOTE | ~2023-01-31 | FL_ITS ---
EXAMINATION: XR FLUOROSCOPY WITH IMAGES CLINICAL INFORMATION: Retrograde cystoscopy. COMPARISON: None available. TECHNIQUE: Fluoroscopy Supervised By: Dr. Carl Choudhary. Fluoroscopy Time: 47.0 seconds. Cumulative Dose: 11.15 mGy. DAP: None available. Images: 2. FINDINGS: 2 images demonstrate contrast in the bladder and urethra. Bladder not optimally distended but appears unremarkable Submitted images demonstrate irregularity of the proximal penile urethra. There is question of extravasation of contrast from the proximal penile urethra extending to the perineum/left scrotal soft tissues. FL/FL guidance in OR IMPRESSION: Fluoroscopy guidance for cystogram and urethrogram.
[2023-01-31] MEDS: Lactated Ringers 1,000 ML 100 ML IVCONT (12:00)
[2023-01-31 12:27] LABS: Glucose, Whole Blood 149 mg/dL (60-115)
--- NOTE | 2023-01-31 14:39 | MHC.SHP ---
Pre-Procedural Eval Section A Date of Service: 01/31/23 The patient is an INPATIENT: No Changes since office visit: No Cold of Flu in the past 2 weeks, No New Medical Problems, No Changes in Medication and No Patient answered all questions The History & Physical has been completed within 30 days and I have reviewed it.: No Section B Chief Complaint: Urethral fistula Details of Present Illness: Question of persistent urethral fistula Relevant Family History (Specify if Yes): No Relevant Social History: None Present Medications: see Short Stay Collaborative assessment Medical History: Significant History History of Previous Operations: Relevant previous surgery/procedure and date(s) Allergies: Allergies Allergy/AdvReac Type Severity Reaction Status Date / Time No Known Allergies Allergy Verified 01/31/23 10:59 [No Known Allergies*] Review of Systems Sugical H&P ROS: Negative: Constitution, Cardiovascular, Respiratory, Neurological, Psychiatric, Hem-Onc, Allergic/Immunologic, Gastrointestinal, Genitourinary, Musculoskeletal, Integumentary, Endocrine and Eyes/Ears/Nose/Throat Exam Surgical H&P Exam: Normal: HEENT, Normal: Heart, Normal: Lungs, Normal: Extremities, Normal: Abdomen, Normal: Skin and Normal: Neurological Plan Diagnosis/Plan: Unchanged ( retrograde urethrogram with cystoscopy under anesthesia) I have reviewed the history and physical and performed a pertinent physical examination on my patient. No changes have occurred unless specified. Time Spent With Patient Time: Total time managing care of this patient today ____ minutes.
--- NOTE | 2023-01-31 15:18 | P.OP_ITS ---
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 Prostate procedure number of years ago with ureteric stones. Now with persistent leakage from perineal area. Question of apical stricturing following prostate laser procedure. Procedure: After informed consent was verified the patient was brought to the operating room and placed in a supine position. Anesthesia was administered per protocol. The patient was prepped and draped in a sterile fashion. Safety pause time-out was performed. Antibiotics being given. Twelve [place] Colvin catheter placed in fossa navicularis. 3 cc added to balloon. Retrograde urethrogram performed. Even filling of anterior and posterior urethra to bulbar region. Stricture at prostatic apex. Prostatic apical filling defect. Small area of extravasation of contrast from just proximal to urinary sphincter to posterior aspect of scrotum Cystoscopy performed. Open apical prostate area however unable to advance 22 [place] cystoscope. Sensor guidewire placed. Open-ended catheter placed. Sixteen [place] tip placed over wire into the bladder. Bladder drained. Tolerated procedure well. Will go home with Colvin catheter in place. Pathology: Drains: colvin catheter
[2023-01-31] MEDS: Acetaminophen 325 MG TABLET 650 MG PO (16:16)
== END 2023-01-31 16:43 | disposition home or self-care (01) ==
PROVIDERS: PCP Internal Medicine; Visit Provider Urology
PROC: 0TJB8ZZ Inspection of Bladder, Via Natural or Artificial Opening Endoscopic (ICD-10-PCS; CPT 52000; principal; 2023-01-31 14:50)
DX: N36.0 Urethral fistula (principal); I10 Essential (primary) hypertension; E78.00 Pure hypercholesterolemia, unspecified; Z89.029 Acquired absence of unspecified finger(s); R73.03 Prediabetes; Z79.84 Long term (current) use of oral hypoglycemic drugs; Z79.899 Other long term (current) drug therapy
CPT/HCPCS: 52005; 82947; J1956; J2405; J3010; Q9967

== ENCOUNTER → 2023-01-31 10:04 | Outpatient (BNV) | payer MEDICARE, SELFPAY | PROVIDERS: PCP Internal Medicine; Visit Provider Urology | DX: N36.0 Urethral fistula (principal) | CPT/HCPCS: 52000; 74420 ==

== ENCOUNTER 2023-02-25 08:37 | Outpatient (AMB) | payer MEDICARE, SELFPAY ==
--- NOTE | 2023-02-25 08:38 | MHC.OFFVIS ---
Intake Intake Visit Reasons: cath change dr montgomery Intake Note: Patient present for catheter removal Allergies No Known Allergies [No Known Allergies*] Allergy (Verified 01/31/23 10:59) HPI HPI Comments History of Present Illness Details Armaan Daniel is a very pleasant male. He is a patient of Dr Washington. He is see for the following urologic conditions. - lower urinary tract symptoms - hydronephrosis - recurring UTI - recurring scrotal perineal abscess Discussed imaging results from cystogram Does show fistulization from prostatic fossa to scrotum Has appointment at [facility] for assessment Discussed Persaud catheter placement if necessary Used catheetr plug Lower Urinary Tract Symptoms: GreenLight 02/2019 Current visit is for further follow-up BPH Current treatment includes 09/12 , alpha jalyn, good response. Prior treatments include 03/15 GLP. Prostate Symptom Score 08/12 , Moderate (9-19), Bother 3 09/12 , Mild (0-8), Bother 2. Symptoms include 08/12 , incomplete emptying, weak stream, nocturia (>2), and are progressing 09/12 , incomplete emptying, nocturia (>2), and are improving - nocturia x2 vs 4. Results from testing include renal/bladder us 12/14 CT scan at [facility], bilateral hydroureteronephrosis secondary to prostate enlargement Prior Prostate Score moderate. PSA 09/12 1.8. Prostate volume 30-50gm. Testing at next visit will include doing well Nephrolithiasis Further evaluation of recurrent nephrolithiasis Stone composition - calcium oxalate mixed 80% monohydrate Imaging - 09/15 renal ultrasound left hydronephrosis with mild cortical thinning, renal stone - 01/15 renal ultrasound no evidence of stones - 08/16 renal ultrasound bilateral renal cysts, small stones on left Prior intervention - left ureteroscopy 11/15 Medications - vitamin B6 and allopurinol Therapeutic plan - continue medications and interval imaging [facility] Medical History Amputated finger COVID-19 vaccine series completed High cholesterol History of benign prostatic hyperplasia HTN (hypertension) Pre-diabetes Surgical History H/O colonoscopy History of appendectomy History of incision and drainage S/P TURP (transurethral resection of prostate) Social History Household Members: Spouse Housing: House Are you a primary critical care nurse practitioner to a significant other at home: No Do you presently have visiting nurse or other home services: No Comment: foely discomfort Patient Tobacco Use Status: Never used Tobacco service: Yes Current occupational status: employed Review of Systems Const Denies chills and Denies fever(s) Card Reports no additional complaints and Denies syncope Resp Denies cough GI Denies abdominal pain and Denies heartburn Reports as per HPI and Denies change in libido Neuro Denies syncope Psych Denies change in libido Endo Denies change in libido Physical Exam Const General: cooperative, healthy appearing, comfortable and no acute distress Orientation/consciousness: patient oriented x3 HEENT Face and sinus: Yes normal facial exam Mouth: moist mucous membranes Neck Neck: Yes normal visual inspection, Yes full ROM and Yes trachea midline Chest Chest palpation & inspection: normal inspection of the chest Resp Effort & Inspection: normal respiratory effort, able to speak in complete sentences and no respiratory distress GI Inspection: Yes normal to inspection Back/Spine/Pelvis Cervical Spine: normal cervical lordosis Thoracic/Lumbar Spine: thoracic and lumbar spine normal to inspection Skin General skin exam: no rashes or lesions noted Neuro General: patient oriented x3, gait normal, tone normal and moves all extremities Extrem General: Yes normal to inspection and Yes capillary refill normal Assessment & Plan Assessment & Plan (1) Bulbous urethral stricture: Code(s): N35.912 - Unspecified bulbous urethral stricture, male Plan Discussion regarding fistula Patient Instructions: Imaging studies, laboratory and physical exam results were discussed and reviewed in detail. No major barriers to patient understanding were identified. An opportunity to ask questions regarding the treatment plan was provided. All questions were answered. The patient expressed understanding and agreement with the above treatment plan. The patient is aware they should contact our office by phone for worsening of their current condition or the appearance of new urologic symptoms. Compliance is encouraged with any medications and followup testing that is ordered. It is a privilege to participate in the urologic care of your patient. If you have any questions or concerns regarding treatment for the above conditions, or other urologic issues, please do not hesitate to contact me. The office telephone contact is [phone]. This note is constructed using voice recognition software. While every effort has been made to ensure accuracy convention services director errors may have been included. Yours sincerely, Dr Carl Montgomery MD, [facility] - Urology Providers of Expert, Compassionate Care for the Genitourinary System Coding Level of Care Code Est Pt Level 3 (41373) Diagnoses Bulbous urethral stricture N35.912
== END 2023-02-25 09:14 | disposition home or self-care (01) ==
LOC: HO.HUSH 08:37
PROVIDERS: PCP Internal Medicine; Visit Provider Urology
DX: N35.912 Unspecified bulbous urethral stricture, male (principal)
CPT/HCPCS: 99213

== ENCOUNTER → 2023-02-25 08:37 | Outpatient (BNVA) | payer MEDICARE, SELFPAY | PROVIDERS: PCP Internal Medicine; Visit Provider Urology | DX: N35.912 Unspecified bulbous urethral stricture, male (principal) | CPT/HCPCS: 99212 ==

== ENCOUNTER 2023-05-24 08:19 | Outpatient (AMB) | payer MEDICARE, SELFPAY ==
--- NOTE | 2023-05-24 08:32 | MHC.OFFVIS ---
Intake Intake Visit Reasons: ER f/u Intake Note: Patient is Present for [facility] Follow Up: Urinary Tract Infection Urology Medication: None Antibiotic Allergies: None Blood Thinners:None Patient was recently in our [facility] ER over the weekend due to UTI. Patient had shakes/chills and fever. Today patient is unable to provide urine specimen, But states that he has no symptoms and is feeling a lot better. Denies any chills or fever at this time. Allergies No Known Allergies [No Known Allergies*] Allergy (Verified 05/24/23 08:47) Medication List - Last Reconciled 06/02/23 by Carl Choudhary MD flash glucose sensor (FreeStyle Stephanie 2 Sensor kit) As directed losartan 25 mg PO DAILY metformin 1,000 mg PO DAILY rosuvastatin 10 mg PO DAILY sulfamethoxazole-trimethoprim 400-80 mg (Bactrim) 1 tab PO BEDTIME 90 days HPI HPI Comments History of Present Illness Details Armaan Daniel is a very pleasant male. He is a patient of Dr Washington. He is see for the following urologic conditions. 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 Prior treatments include 03/15 GLP. Prostate Symptom Score / , Moderate (9-19), Bother 3 09/12 , Mild (0-8), Bother 2. Symptoms include 08/12 , incomplete emptying, weak stream, nocturia (>2), and are progressing 09/12 , incomplete emptying, nocturia (>2), and are improving - nocturia x2 vs 4. Results from testing include renal/bladder us 12/14 CT scan at [facility], bilateral hydroureteronephrosis secondary to prostate enlargement Prior Prostate Score moderate. PSA 09/12 1.8. Prostate volume 30-50gm. Testing at next visit will include doing well Nephrolithiasis Further evaluation of recurrent nephrolithiasis Stone composition - calcium oxalate mixed 80% monohydrate Imaging - 09/15 renal ultrasound left hydronephrosis with mild cortical thinning, renal stone - 01/15 renal ultrasound no evidence of stones - 08/16 renal ultrasound bilateral renal cysts, small stones on left Prior intervention - left ureteroscopy 11/15 Medications - vitamin B6 and allopurinol Therapeutic plan - continue medications and interval imaging [facility] Medical History Pre-diabetes COVID-19 vaccine series completed HTN (hypertension) History of benign prostatic hyperplasia High cholesterol Amputated finger Surgical History H/O colonoscopy History of incision and drainage History of appendectomy S/P TURP (transurethral resection of prostate) Social History Household Members: Spouse Housing: House Are you a primary rn wound care to a significant other at home: No Do you presently have visiting nurse or other home services: No Comment: foely discomfort Patient Tobacco Use Status: Never used Tobacco service: Yes Current occupational status: employed Review of Systems Const Denies chills and Denies fever(s) Card Reports no additional complaints and Denies syncope Resp Denies cough GI Denies abdominal pain and Denies heartburn Reports as per HPI and Denies change in libido Neuro Denies syncope Psych Denies change in libido Endo Denies change in libido Physical Exam Const General: cooperative, healthy appearing, comfortable and no acute distress Orientation/consciousness: patient oriented x3 HEENT Face and sinus: Yes normal facial exam Mouth: moist mucous membranes Neck Neck: Yes normal visual inspection, Yes full ROM and Yes trachea midline Chest Chest palpation & inspection: normal inspection of the chest Resp Effort & Inspection: normal respiratory effort, able to speak in complete sentences and no respiratory distress GI Inspection: Yes normal to inspection Back/Spine/Pelvis Cervical Spine: normal cervical lordosis Thoracic/Lumbar Spine: thoracic and lumbar spine normal to inspection Skin General skin exam: no rashes or lesions noted Neuro General: patient oriented x3, gait normal, tone normal and moves all extremities Extrem General: Yes normal to inspection and Yes capillary refill normal Assessment & Plan Assessment & Plan (1) Fistula, 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 No major barriers to patient understanding were identified. An opportunity to ask questions regarding the treatment plan was provided. All questions were answered. The patient expressed understanding and agreement with the above treatment plan. The patient is aware they should contact our office by phone for worsening of their current condition or the appearance of new urologic symptoms. Compliance is encouraged with any medications and followup testing that is ordered. It is a privilege to participate in the urologic care of your patient. If you have any questions or concerns regarding treatment for the above conditions, or other urologic issues, please do not hesitate to contact me. The office telephone contact is [phone]. This note is constructed using voice recognition software. While every effort has been made to ensure accuracy lithographic photographer apprentice errors may have been included. 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
== END 2023-05-24 09:31 | disposition home or self-care (01) ==
PROVIDERS: PCP Internal Medicine; Visit Provider Urology
DX: N36.0 Urethral fistula (principal)
CPT/HCPCS: 99213

== ENCOUNTER → 2023-05-24 08:19 | Outpatient (BNVA) | payer MEDICARE, SELFPAY | PROVIDERS: PCP Internal Medicine; Visit Provider Urology | DX: N36.0 Urethral fistula (principal) | CPT/HCPCS: 99212 ==

== ENCOUNTER 2023-08-15 07:12 | Outpatient (REF) | payer MEDICARE, SELFPAY | END 2023-08-15 07:13 | disposition home or self-care (01) | LOC: HO.MRI 07:12 | PROVIDERS: PCP Internal Medicine; Visit Provider Urology | DX: Z13.89 Encounter for screening for other disorder (principal) ==